=== PATIENT | female | born 1965 | race Caucasian/White ===

== ENCOUNTER → 2016-11-12 | Outpatient (CLI) | payer BC ==
[~2016-11-12] MED LIST: /DULO30CA; /LOR25TA PO; /ROPI1TA; ATEN50TA2 OR; ATEN50TA2 PO; AVONEX IM; CEFT2ADD; COLA100C2 OR; COLA50CA OR; COZA50TA18 OR; EYE VIT PO; FLEXERIL; HEPARIN FLUSH; HYDR25TA6 OR; HYDR25TA6 PO; IBUP600T; LIDO5DIS EX; LUTEIN PO; MAGN500T2 PO; METH2.5T OR; MULTIVITAMIN PO; NAPR250T OR; NEUR100C OR; NEUR300C OR; NEUR600T OR; NORT25CA2 OR; NORT50CA OR; OMEP20TA7 OR; PRED FORTE OS; SALINE FLUSH; SENN8.6T5 OR; SYNT50TA; TENO50TA; TIZA4TAB OR; VICODINES TAB OR; VITA500C OR; VITAMIN D50000 UNT OR; VOLT1GEL2 TD; ZOVI5OIN; multi vit PO; relpax PO; vit D3 PO
[2016-11-12 10:53] LABS: EOS # 0.1 K/mm3 (0.0-0.50); EOS % 2.4 % (0.0-3.0); LARGE UNSTAINED CELL # 0.1 K/mm3 (0.0-0.4); LYMPH # 1.4 K/mm3 (1.5-4.5); LYMPH % 27.9 % (24.0-44.0); MEAN CORPUSCULAR HEMOGLOBIN 28.9 pg (27.0-33.0); MEAN CORPUSCULAR HGB CONC 32.3 g/dl (32.0-36.5); MEAN CORPUSCULAR VOLUME 89.2 fl (80.0-96.0); MONO # 0.4 K/mm3 (0.0-0.8); MONO % 7.9 % (0.0-5.0); NEUTROPHILS # 2.8 K/mm3 (1.8-7.7); NEUTROPHILS % 58.7 % (36.0-66.0); PLATELET COUNT, AUTOMATED 184 k/mm3 (150-450); RED CELL DISTRIBUTION WIDTH 13.4 % (11.5-14.5); WHITE BLOOD COUNT 4.7 K/mm3 (4.0-10.0)
[2016-11-12 11:21] LABS: ALBUMIN 3.7 GM/DL (3.2-5.2); ALBUMIN/GLOBULIN RATIO 0.97 (1.00-1.93); BILIRUBIN,DIRECT 0.2 MG/DL (0.0-0.2); BILIRUBIN,TOTAL 0.5 MG/DL (0.2-1.0); FREE T4 1.12 NG/DL (0.76-1.46); TOTAL PROTEIN 7.5 GM/DL (6.4-8.2)
== END ==
LOC: M LAB 10:06
PROVIDERS: ATTEND Nurse Practitioner Adult Health
DX: D51.1 Vitamin B12 deficiency anemia due to selective vitamin B12 malabsorption with proteinuria (principal)

== ENCOUNTER → 2016-12-23 | Outpatient (CLI) | payer OTHER, BC ==
[2016-12-23 09:12] LABS: BLOOD UREA NITROGEN 15 MG/DL (7-18); CREATININE FOR GFR 0.91 MG/DL (0.55-1.02); GLOMERULAR FILTRATION RATE > 60.0 (>51)
== END ==
LOC: M LAB 08:03
PROVIDERS: ATTEND Nurse Practitioner Family
DX: Z01.818 Encounter for other preprocedural examination (principal); M50.320 Other cervical disc degeneration, mid-cervical region, unspecified level; M51.36 Other intervertebral disc degeneration, lumbar region; M51.26 Other intervertebral disc displacement, lumbar region; M54.16 Radiculopathy, lumbar region; M50.20 Other cervical disc displacement, unspecified cervical region; M46.1 Sacroiliitis, not elsewhere classified; M47.817 Spondylosis without myelopathy or radiculopathy, lumbosacral region; M47.812 Spondylosis without myelopathy or radiculopathy, cervical region; M79.7 Fibromyalgia; G35 Multiple sclerosis; I10 Essential (primary) hypertension

== ENCOUNTER 2017-02-18 06:42 | Day surgery (SDC) | payer BC, OTHER ==
[~2017-02-18] VITALS: Ht 160 cm; Wt 88.6 kg
[2017-02-18] MEDS ORDERED: MULT1TAB18 PO (07:13)
[2017-02-18] MEDS ORDERED: MIRA3350 PO ×2 (07:13→11:27)
[2017-02-18] MEDS ORDERED: LEVO75TA4 PO ×2 (07:13→11:27)
[2017-02-18] MEDS ORDERED: KLON0.5T PO (07:13)
[2017-02-18] MEDS ORDERED: AMPY10TA PO (07:13)
[2017-02-18] MEDS ORDERED: NORV5TAB PO (07:13)
[2017-02-18] MEDS ORDERED: estrace (07:13)
[2017-02-18] MEDS ORDERED: AMMO12CR4 EX (07:13)
[2017-02-18] MEDS ORDERED: FLUO20CA8 PO (07:13)
--- NOTE | 2017-02-18 10:10 | REP ---
CT CHEST WITHOUT IV CONTRAST: CT chest is performed without IV contrast. There is a question of hard candy aspiration. Careful evaluation of the trachea and bronchi demonstrate no definite foreign body. There is an area of confluent opacity in the left lower lobe representing atelectasis or infiltrate. There is very mild fibroatelectatic change in the right middle lobe. No significant adenopathy is seen in the chest. The heart is mildly enlarged. There is no pleural or pericardial effusion. The visualized upper abdominal structures appear unremarkable. IMPRESSION: No definite radiopaque foreign body identified. Left lower lobe atelectasis/infiltrate. Signed by Chetan Ahn MD 02/18/2017 03:19 P
[2017-02-18] MEDS ORDERED: [UNRECOGNIZED DRUG - CODE] SC (11:17)
[2017-02-18] MEDS ORDERED: VITMTA PO (11:27)
[2017-02-18] MEDS ORDERED: NORT50CA PO (11:27)
[2017-02-18] MEDS ORDERED: ATEN50TA2 PO (11:27)
[2017-02-18] MEDS ORDERED: GABA600T PO (11:27)
[2017-02-18] MEDS ORDERED: GABA-282 PO (11:27)
[2017-02-18] MEDS ORDERED: CLON0.5T PO (11:27)
[2017-02-18] MEDS ORDERED: SENN1TAB10 PO (11:27)
[2017-02-18] MEDS ORDERED: AMLO5TAB2 PO (11:27)
[2017-02-18] MEDS ORDERED: ZANA4TAB PO (11:27)
[2017-02-18] MEDS ORDERED: HYDR-3713 PO (11:27)
[2017-02-18] MEDS ORDERED: HYDR12CA PO (11:27)
[2017-02-18] MEDS ORDERED: NAPR500T3 PO (11:27)
[2017-02-18] MEDS ORDERED: COLA100C5 PO (11:27)
[2017-02-18] MEDS ORDERED: ESTR1CRE PV (11:27)
[2017-02-18] MEDS ORDERED: VOLT1GEL15 TD (11:27)
[2017-02-18] MEDS ORDERED: RELP40TA PO (11:27)
[2017-02-18] MEDS ORDERED: LOSA50TA20 PO (11:27)
[2017-02-18] MEDS ORDERED: FLUO40CA PO (11:27)
[2017-02-18 11:43] LABS: MEAN CORPUSCULAR HEMOGLOBIN 28.6 pg (27.0-33.0); MEAN CORPUSCULAR HGB CONC 33.2 g/dl (32.0-36.5); MEAN CORPUSCULAR VOLUME 86.1 fl (80.0-96.0); RED CELL DISTRIBUTION WIDTH 14.5 % (11.5-14.5); WHITE BLOOD COUNT 5.7 K/mm3 (4.0-10.0)
[2017-02-18 11:48] LABS: ALBUMIN/GLOBULIN RATIO 0.87 (1.00-1.93); ALKALINE PHOSPHATASE 160 U/L (45-117); ALT/SGPT 46 U/L (12-78); ANION GAP 9 MEQ/L (8-16); AST/SGOT 39 U/L (15-37); BILIRUBIN,TOTAL 0.5 MG/DL (0.2-1.0); BLOOD UREA NITROGEN 19 MG/DL (7-18); CALCIUM LEVEL 9.5 MG/DL (8.5-10.1); CARBON DIOXIDE LEVEL 27 MEQ/L (21-32); CHLORIDE LEVEL 103 MEQ/L (98-107); CREATININE FOR GFR 0.99 MG/DL (0.55-1.02); GLOMERULAR FILTRATION RATE > 60.0 (>51); GLUCOSE, FASTING 91 MG/DL (70-105); POTASSIUM SERUM 3.9 MEQ/L (3.5-5.1); SODIUM LEVEL 139 MEQ/L (136-145); TOTAL PROTEIN 8.6 GM/DL (6.4-8.2)
--- NOTE | 2017-02-18 11:50 | REP ---
CHEST, TWO VIEWS: Two views of the chest are performed. There is an area of left lower lobe atelectasis/infiltrate anteriorly best seen on the lateral view. Right lung is clear. Heart appears slightly enlarged. Mediastinal silhouette is unremarkable. There are mild degenerative changes of the spine. IMPRESSION: Left lower lobe atelectasis/infiltrate. Signed by Chetan Ahn MD 02/18/2017 03:19 P
--- NOTE | 2017-02-18 12:31 | HPE ---
DATE OF ADMISSION: 02/18/2017 REASON FOR ADMISSION: Possible foreign body aspiration. HISTORY OF PRESENT ILLNESS: Mikaela Syed is a very pleasant, 52-year-old lifetime nonsmoker who presented to the emergency room this morning after having what she believes to be an aspiration event. She states she often uses hard candy to treat her dry mouth symptoms. She had a half a piece of hard candy in her mouth that she believes she aspirated. She had coughing associated with this and now has a discomfort on the left side of her sternum. Initially, she thought the lozenge could dissolve and consumed water. She has had no solid food since this time. She states she definitely felt the hard candy move during inhalation. 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 She has been recently treated for Strep throat. She states on February 08 she was started on amoxicillin. Initially, she had a fever, but this has resolved. Currently, she has no significant increase in shortness breath. She has been having harsh coughing episodes with occasional biliary production and possible aspiration since the diagnosis of Strep throat and intermittent coughing since the potential for body aspiration. She states yesterday she was under a procedure for lumbar radiofrequency and had conscious sedation. She states she does not have any significant reactions from general anesthesia, but does have "a hard time coming out". She has had no significant changes in weight. Currently has no fevers. No history of coronary disease. No history of lung disease. PAST MEDICAL HISTORY: Significant for multiple sclerosis, hypertension, history of lacunar infarct, history of lumbar radiofrequency, MS with bilateral lower extremity paresthesias, hypothyroidism, depression, fatigue, migraine headaches, vaginal atrophy for which she takes esterase, chronic pain, plantar fasciitis, history of a cystocele, history of left rotator cuff injury, and right wrist tendonitis and carpal tunnel syndrome. Her primary care physician is Dr. Main. Past Medical History: 1. Hydrocodone/Acetaminophen 5/325 one po TID prn pain 2. Amlodipine 5mg po BID 3. Atenolol 75mg po BID 4. Clonazepam 0.5mg po TID 5. Colace 100mg po Qweek 6. Relpax 40mg po prn 7. Estradiol cream 8. Fluoxetine 40 mg po daily 9. Gabapentin 300mg po tid, A total of 900 QHS 10. Hydrochlorothiazide 12.5mg po daily 11. Synthroid 75mcg QD 12. Losartan 50mg po BID 13. MVI one tab po daily 14. Naproxen 500mg po BID 15. Nortriptyline 50mg po QHS 16. Polyethylene glycol 17 gram po prn 17. Rebif 44mcg SQ every 3 weeks 18. Senna 8.6mg 1-2 tabs prn constipation 19. Zanaflex 4mg po QID 20. Voltaren 1% gel one dose BID prn Allergies: Sulfa drugs FAMILY HISTORY: Father had a renal transplant from end-stage renal disease and also has a history of hypertension. Mother has a history of goiter. SOCIAL HISTORY: The patient is a lifetime nonsmoker. No illicit drug use. Has one wine cooler every 4 months. Has one parakeet, two dogs. 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 Lives with her who is also a renal transplant patient. REVIEW OF SYSTEMS: General: No significant weight swings. Remote history of fever at the beginning of her treatment for her Strep throat. No fever currently. No chills or night sweats. HEENT: No change in vision. She wears glasses. No earaches. She has chronic dry mouth. No difficulty swallowing usually. Neck: No stridor. No history of goiter. Endocrine: No polyuria or polydipsia. Hematology/Oncology: No history of bleeding diatheses, but she states she does tend to bleed easily. She has not been formally diagnosed with any blood clotting disorders. GI: No nausea, vomiting, diarrhea, constipation, or blood in stool. : No burning or pain with urination. No hematuria or dysuria. Cardiac: No history of coronary artery disease. No anginal symptoms. No orthopnea, paroxysmal nocturnal dyspnea (PND) or lower extremity edema. No calf pain or history of thromboembolic disease. Neurologic: No unilateral weakness. She does have bilateral paresthesias. No history of tremor or seizure activity. No head trauma. Psych: She does not feel depressed currently, she has a history of depression. No suicidal ideation. Immunology/Allergies: No significant immunodeficiencies. No frequent infections. PHYSICAL EXAMINATION: Temperature is 97.5, pulse is 72, respiratory rate is 18, blood pressure is 138/84 with oxygen saturation 96% on room air. General: Awake, alert and oriented. Affect and mood appropriate. Nutrition and hygiene good. Oral and nasal mucosa pink and moist without lesions. Oropharynx without erythema or exudate. Tongue is midline. There is some dryness of the tongue and an open lesion on the left side of the tongue. She has prominent tonsils without any obstruction of the airway. Mallampati 1. Posterior pharynx without erythema or exudate. Neck: Supple. No tracheal deviation or mass. No thyromegaly. Lymphs: No cervical, supraclavicular or axillary adenopathy. Cardiac: Regular. S1, S2, without audible murmur or gallop. No elevated jugular venous pulse (JVP). No peripheral edema. Pulmonary: Clear to auscultation without rales, rhonchi or wheezes. No accessory muscle use. No wheezing. No stridor. No dullness to percussion. Abdomen: Soft, nontender, nondistended. No hepatosplenomegaly. No masses or hernias. Normoactive bowel sounds. Extremities: No cyanosis, clubbing or edema. Skin is pale, dry, without rash, jaundice or bruising. Musculoskeletal: Tone is normal. There is no evidence of joint effusion or fracture. Neurologic: No unilateral weakness, tremor or seizure activity. LABORATORY EVALUATION: Pending. Chest CT was reviewed. I cannot disagree with the chest CT report. I believe there is an abnormality in the left lower lobe that could possibly be a foreign body; however, it does appear to be possibly confluent with the artery versus infiltrate. However, there is a potential foreign body in the medial basal segment of the left lower lobe. Otherwise, I do not find any significant abnormalities in the lung. I agree that there is maybe some mild fibrotic atelectatic change. No evidence of pneumothorax. No pleural effusion. No pericardial effusion. No significant adenopathy. IMPRESSION: 1. Foreign body aspiration with a piece of candy. Due to the patient's persistent symptoms, cough and potential for infection, will perform bronchoscopy to remove the foreign body and wash airway. The patient was consented. The risks of the procedure including cough, sore throat, bleeding, pneumothorax, and difficulty with anesthesia were reviewed with the patient in detail. She expresses understanding. I did educate her on bronchoscopy, that if there is anything abnormal during my exam that is unrelated to the foreign body aspiration, that I may decide to biopsy this area if there is a significant abnormality that is cause of concern. She expresses understanding and gives consent for this. My plan is to perform this on a same day procedure and if she tolerates the procedure well and recovers well from anesthesia to discharge her home later today. If she has any difficulty with breathing, will admit the patient to the hospital for observation. DIANA
[2017-02-18] MEDS ORDERED: ROCURONIUM BROMIDE 50 MG/5 ML VIAL/SYRINGE As Ordered ONE (12:32)
[2017-02-18] MEDS ORDERED: PROPOFOL 200 MG/20 ML VIAL As Ordered ONE (12:32)
[2017-02-18] MEDS ORDERED: LIDOCAINE 2% INJ 100 MG/5 ML SDV (FOR ANES.) As Ordered ONE (12:32)
[2017-02-18] MEDS ORDERED: fentaNYL 100 MCG/2 ML INJECTION (J3010) As Ordered ONE (12:32)
[2017-02-18] MEDS ORDERED: MIDAZOLAM INJ 2 MG/2 ML VIAL (J2250) As Ordered ONE (12:32)
[2017-02-18] MEDS ORDERED: ONDANSETRON 4MG/2ML VIAL (J2405) As Ordered ONE (12:32)
[2017-02-18] MEDS ORDERED: SUCCINYLCHOLINE 100 MG/5 ML SYRINGE (J0330) As Ordered ONE (12:32)
[2017-02-18] MEDS ORDERED: dexameTHASONE 4 MG/ML 1ML VIAL (J1100) As Ordered ONE (12:32)
--- NOTE | 2017-02-18 13:03 | RO ---
DATE OF PROCEDURE: 02/18/2017 PREOPERATIVE DIAGNOSIS: Possible foreign body aspiration, abnormal chest CT. POSTOPERATIVE DIAGNOSIS: Possible foreign body aspiration, abnormal chest CT. FINDINGS: Dissolved brown liquid in the left lower lobe. PROCEDURE: Bronchoscopy with lavage. PROCEDURALIST: Wicho Cruz DO WAFER POLISHING LEAD WORKER: None ANESTHESIA: General. DESCRIPTION OF PROCEDURE: After informed consent was reviewed with the patient, she was brought back to operating room number three. A time out was then performed with two patient identifiers, identifying correct site and correct procedure. General anesthesia was initiated. The case was then handed over to me. Cetacaine spray was used to anesthetize the airway and lubricate the endotracheal tube. The [id number] scope was then inserted in through the of the endotracheal tube just after a second time out was performed with two patient identifiers, identifying correct site and correct procedure. The bronchoscope was then advanced into the airways. Trachea was midline. Soledad was sharp. Right and left bronchus was normal except for some mild white plaquing of the right mainstem consistent with nestor. RB 1 through 10 was normal without endobronchial lesions. LB 1 through 5 was normal without endobronchial lesions. There was a trail of brown liquid down the left mainstem. In the left lower lobe, there was thick obstructing mucus to the left lower lobe. This was suctioned and lavaged. All airways were cleared. There was no foreign body. All airways of the lower lobe were then again lavaged and suctioned. Airways were cleared and the bronchoscope was removed. There were no observed complications. The patient was extubated and is in recovery. I have prescribed azithromycin as an outpatient due to the inflammation from the probable aspiration given the brown liquid in the left mainstem. This was called into her pharmacy in [facility]. DIANA
[2017-02-18 13:09] VITALS: BP 119/75
[2017-02-18] MEDS ORDERED: LR 1,000 ML IV SCH (13:15)
== END 2017-02-18 15:10 | disposition home or self-care (01) ==
LOC: M ED 06:42 → M SDC 11:18 → M MS5PR 13:30 → M SDC 15:10
PROVIDERS: ATTEND Internal Medicine Pulmonary Disease
DX: R91.8 Other nonspecific abnormal finding of lung field (principal); T17.828A Food in other parts of respiratory tract causing other injury, initial encounter; X58.XXXA Exposure to other specified factors, initial encounter; Y92.89 Other specified places as the place of occurrence of the external cause; G35 Multiple sclerosis; I10 Essential (primary) hypertension; Z86.73 Personal history of transient ischemic attack (TIA), and cerebral infarction without residual deficits; E03.9 Hypothyroidism, unspecified; F32.9 Major depressive disorder, single episode, unspecified; G43.909 Migraine, unspecified, not intractable, without status migrainosus; N95.2 Postmenopausal atrophic vaginitis; M48.00 Spinal stenosis, site unspecified; M54.9 Dorsalgia, unspecified; Z79.899 Other long term (current) drug therapy; Z88.2 Allergy status to sulfonamides
CPT/HCPCS: 31624; 71020; 71250; 80053; 85027; 99284; J0330; J1100; J2250; J2405; J3010

== ENCOUNTER → 2017-03-10 | Outpatient (CLI) | payer BC ==
[~2017-03-10] MED LIST changes: +AMLO5TAB2 PO; +AMMO12CR4 EX; +AMPY10TA PO; +CLON0.5T PO; +COLA100C5 PO; +ESTR1CRE PV; +FLUO20CA8 PO; +FLUO40CA PO; +GABA-282 PO; +GABA600T PO; +HYDR-3713 PO; +HYDR12CA PO; +KLON0.5T PO; +LEVO75TA4 PO; +LOSA50TA20 PO; +MIRA3350 PO; +MULT1TAB18 PO; +NAPR500T3 PO; +NORT50CA PO; +NORV5TAB PO; +RELP40TA PO; +SENN1TAB10 PO; +VITMTA PO; +VOLT1GEL15 TD; +ZANA4TAB PO; +[UNRECOGNIZED DRUG - CODE] SC; +estrace
--- NOTE | 2017-03-10 11:16 | REPMRS ---
Patient History The patient states she had a clinical breast exam in January 2017. Family history of endometrial cancer in maternal aunt, breast cancer in maternal aunt at age 65, breast cancer in paternal aunt at age 55, and endometrial cancer in maternal cousin at age 25. Took hormonal contraceptives for 11 years. Digital Mammo Screening Bilat: March 10, 2017 - Exam #: [id number] Bilateral CC and MLO view(s) were taken. Technologist: Beatris Herrera, Technologist Prior study comparison: February 29, 2016, bilateral digital mammo screening bilat performed at [facility]. February 18, 2015, digital bilateral screening mammo, performed at [facility]. FINDINGS: There are scattered fibroglandular densities. There has been no change in the appearance of the mammogram from the prior studies. There is a mild amount of residual fibroglandular tissue which is fairly symmetric. There is no interval development of dominant mass, architectural distortion, or clustered microcalcification suggestive of malignancy. ASSESSMENT: BI-RADS/ACR category 1 mammogram. Negative. Recommendation Routine screening mammogram in 1 year (for women over age 40). This mammogram was interpreted with the aid of an FDA-approved computer-aided dectection system. Electronically Signed By: Chetan Ahn MD 03/10/17 [id number]
== END ==
LOC: M RAD 08:17
PROVIDERS: ATTEND Obstetrics & Gynecology
DX: Z12.31 Encounter for screening mammogram for malignant neoplasm of breast (principal)

== ENCOUNTER 2017-04-14 10:02 | Emergency (ER) | payer BC ==
[~2017-04-14] VITALS: Ht 160 cm; Wt 86.4 kg
[2017-04-14 10:03] VITALS: BP 132/76
[2017-06-08] MEDS ORDERED: KEFL500C17 PO (15:08)
== END 2017-04-14 10:48 | disposition home or self-care (01) ==
LOC: M ED 10:02
DX: S00.411A Abrasion of right ear, initial encounter (principal); X58.XXXA Exposure to other specified factors, initial encounter; Y92.89 Other specified places as the place of occurrence of the external cause; Y93.89 Activity, other specified; Y99.8 Other external cause status; I10 Essential (primary) hypertension; G35 Multiple sclerosis; E03.9 Hypothyroidism, unspecified; M79.7 Fibromyalgia; Z79.899 Other long term (current) drug therapy; Z88.2 Allergy status to sulfonamides; Z86.73 Personal history of transient ischemic attack (TIA), and cerebral infarction without residual deficits

== ENCOUNTER 2017-06-13 11:38 | Emergency (ER) | payer BC ==
[~2017-06-13] VITALS: Ht 160 cm; Wt 84.5 kg
[~2017-06-13 11:38] MED LIST changes: +KEFL500C17 PO
[2017-06-13] MEDS ORDERED: LIDOCAINE 1% MDV 20ML VIAL IM ONE (12:45)
[2017-06-13] MEDS ORDERED: ADACEL/BOOSTRIX VACCINE (DIPHTH/PERTUSS/ACELL/TETANUS)0.5ML SYR (90715) IM ONE (12:45)
[2017-06-13] MEDS ORDERED: CEPHALEXIN 500 MG CAP PO ONE (12:45)
[2017-06-13] MEDS ORDERED: KEFL500C17 PO (13:13)
[2017-06-13 13:20] VITALS: BP 121/77
== END 2017-06-13 13:23 | disposition home or self-care (01) ==
LOC: M ED 11:38
DX: S51.812A Laceration without foreign body of left forearm, initial encounter (principal); W26.0XXA Contact with knife, initial encounter; Y92.009 Unspecified place in unspecified non-institutional (private) residence as the place of occurrence of the external cause; Y93.G1 Activity, food preparation and clean up; Y99.8 Other external cause status; G35 Multiple sclerosis; M79.7 Fibromyalgia; Z86.73 Personal history of transient ischemic attack (TIA), and cerebral infarction without residual deficits

== ENCOUNTER → 2018-04-05 | Outpatient (CLI) | payer BC, MEDICARE | LOC: M WHC 09:11 | DX: Z12.31 Encounter for screening mammogram for malignant neoplasm of breast (principal); Z13.820 Encounter for screening for osteoporosis; M89.9 Disorder of bone, unspecified | CPT/HCPCS: 77067 ==

== ENCOUNTER → 2018-05-02 | Outpatient (CLI) | payer BC, MEDICARE ==
[2018-05-02 09:52] LABS: ALBUMIN 3.8 GM/DL (3.2-5.2); ALBUMIN/GLOBULIN RATIO 1.12 (1.00-1.93); ALKALINE PHOSPHATASE 140 U/L (45-117); ALT/SGPT 43 U/L (12-78); ANION GAP 5 MEQ/L (8-16); AST/SGOT 35 U/L (7-37); BILIRUBIN,TOTAL 0.4 MG/DL (0.2-1.0); BLOOD UREA NITROGEN 15 MG/DL (7-18); CALCIUM LEVEL 9.2 MG/DL (8.5-10.1); CARBON DIOXIDE LEVEL 30 MEQ/L (21-32); CHLORIDE LEVEL 110 MEQ/L (98-107); CREATININE FOR GFR 0.84 MG/DL (0.55-1.30); GLOMERULAR FILTRATION RATE > 60.0 (>51); GLUCOSE, FASTING 79 MG/DL (70-100); POTASSIUM SERUM 4.1 MEQ/L (3.5-5.1); SODIUM LEVEL 145 MEQ/L (136-145); TOTAL PROTEIN 7.2 GM/DL (6.4-8.2)
== END ==
LOC: M LAB 07:53
DX: G35 Multiple sclerosis (principal)
CPT/HCPCS: 80053

== ENCOUNTER → 2018-12-19 | Outpatient (REF) | payer BC, MEDICARE ==
[~2018-12-19] MED LIST changes: -/DULO30CA; -/ROPI1TA; -AMLO5TAB2 PO; +AMLO5TAB6 PO; -AMMO12CR4 EX; +AMMO12CR7 EX; -CLON0.5T PO; +CLON0.5T8 PO; +CYMB1CAP5; -GABA-282 PO; +GABA-843 PO; -GABA600T PO; +GABA600T4 PO; -LOSA50TA20 PO; +LOSA50TA88 PO; +NAPR-885 PO; -NAPR500T3 PO; +REQU1TAB16
[2018-12-19 12:33] LABS: BASO % 0.8 % (0.0-1.0); EOS # 0.1 10^3/uL (0.0-0.50); EOS % 2.5 % (0.0-3.0); HEMATOCRIT 41.8 % (36.0-47.0); HEMOGLOBIN 13.8 g/dl (12.0-15.5); LYMPH # 1.5 10^3/uL (1.5-4.5); LYMPH % 31.8 % (24.0-44.0); MEAN CORPUSCULAR HEMOGLOBIN 29.9 pg (27.0-33.0); MEAN CORPUSCULAR VOLUME 90.7 fl (80.0-96.0); MONO # 0.4 10^3/uL (0.0-0.8); MONO % 8.7 % (0.0-5.0); NEUTROPHILS # 2.6 10^3/uL (1.8-7.7); NEUTROPHILS % 55.8 % (36.0-66.0); PLATELET COUNT, AUTOMATED 179 10^3/uL (150-450); RED BLOOD COUNT 4.61 10^6/uL (4.00-5.40); WHITE BLOOD COUNT 4.7 10^3/uL (4.0-10.0)
[2018-12-19 12:46] LABS: INR 0.92; PROTHROMBIN TIME 12.5 SECONDS (12.1-14.4)
[2018-12-19 12:47] LABS: PARTIAL THROMBOPLASTIN TIME 34.5 SECONDS (25.4-37.6)
[2018-12-19 13:04] LABS: ERYTHROCYTE SEDIMENTATION RATE 17 mm/hr (0-30)
[2018-12-19 13:26] LABS: ALT/SGPT 38 U/L (12-78); BILIRUBIN,TOTAL 0.5 MG/DL (0.2-1.0); BLOOD UREA NITROGEN 17 MG/DL (7-18); C REACTIVE PROTEIN QUANTITATIV 0.43 MG/DL (0.00-0.30); CALCIUM LEVEL 8.9 MG/DL (8.5-10.1); CARBON DIOXIDE LEVEL 27 MEQ/L (21-32); CHLORIDE LEVEL 108 MEQ/L (98-107); CHOLESTEROL LEVEL 239 MG/DL (<200); CHOLESTEROL RISK RATIO 3.793 (<5); CPK CREATINE PHOSPHOKINASE 76 U/L (26-192); CREATININE FOR GFR 0.84 MG/DL (0.55-1.30); FREE T4 1.05 NG/DL (0.76-1.46); GLOMERULAR FILTRATION RATE > 60.0 (>51); GLUCOSE, FASTING 88 MG/DL (70-100); HDL CHOLESTEROL 63 MG/DL (>40); LDL CHOLESTEROL 159 MG/DL (<100); NON-HDL-C 176 MG/DL; SODIUM LEVEL 141 MEQ/L (136-145); TOTAL 25(OH) VITAMIN D 23.5 NG/ML (30.0-100.0); TOTAL PROTEIN 7.1 GM/DL (6.4-8.2); TRIGLYCERIDES LEVEL 87 MG/DL (<150)
[2018-12-19 18:34] LABS: APPEARANCE, URINE CLEAR (CLEAR); BACTERIA, URINE AUTO NEGATIVE (NEGATIVE); BILIRUBIN, URINE AUTO NEGATIVE (NEGATIVE); BLOOD, URINE BLOOD NEGATIVE (NEGATIVE); COLOR, URINE YELLOW (YELLOW); GLUCOSE, URINE (UA) AUTO NEGATIVE (NEGATIVE); KETONE, URINE AUTO NEGATIVE (NEGATIVE); LEUKOCYTE ESTERASE, URINE AUTO NEGATIVE (NEGATIVE); MUCUS, URINE SMALL (NEGATIVE); NITRITE, URINE AUTO NEGATIVE (NEGATIVE); PROTEIN, URINE AUTO NEGATIVE (NEGATIVE); RBC, URINE AUTO 0 /HPF (0-3); SPECIFIC GRAVITY URINE AUTO 1.012 (1.002-1.035); SQUAMOUS EPITHELIAL CELL UR AU 1 /HPF (0-6); UROBILINOGEN, URINE AUTO 0.2 mg/dL (0.0-2.0); WBC, URINE AUTO 0 /HPF (0-3)
[2018-12-21 00:06] LABS: ANTI DOUBLE STRAND-DNA AB 1 IU/mL (0-9); ANTINUCLEAR ANTIBODIES DIRECT Positive (Negative); Lyme Disease IgG/IgM Antibodie <0.91 ISR (0.00-0.90); Lyme Disease IgM Ab Quantitati <0.80 index (0.00-0.79); RNP ANTIBODIES 5.6 AI (0.0-0.9); SJOGREN'S ANTI SS-A 0.5 AI (0.0-0.9); SJOGREN'S ANTI SS-B <0.2 AI (0.0-0.9); SMITH ANTIBODIES <0.2 AI (0.0-0.9)
[2018-12-21 08:06] LABS: F8 ACTIVITY FOR F8 PANEL 85 % (57-163); F8 ACTIVITY vWB FOR F8 PANEL 147 % (50-200); F8 ANTIGEN FOR F8 PANEL 187 % (50-200)
[2018-12-25 10:33] LABS: DRVV SCREEN 55.4 SEC
[2018-12-25 10:34] LABS: PTT LUPUS TYPE ANTICOAG SCREEN 1.3 (0-1.2)
[2018-12-25 10:41] LABS: DRVV CONFIRM 41.1 SEC; LUPUS CONFIRM RATIO 1.1; NORMALIZED RATIO 1.18 (0.00-1.20)
== END ==
LOC: M LABDRAW1 12:06
PROVIDERS: ATTEND Internal Medicine
DX: E03.9 Hypothyroidism, unspecified (principal); G35 Multiple sclerosis; I99.8 Other disorder of circulatory system

== ENCOUNTER → 2019-03-04 | Outpatient (CLI) | payer BC, MEDICAID ==
[~2019-03-04] MED LIST changes: +CLON0.5T2 PO; -CLON0.5T8 PO; +FLUO20CA20 PO; -FLUO20CA8 PO
[2019-03-04 13:21] LABS: HEMATOCRIT 41.7 % (36.0-47.0); HEMOGLOBIN 13.3 g/dl (12.0-15.5); MEAN CORPUSCULAR HEMOGLOBIN 28.9 pg (27.0-33.0); MEAN CORPUSCULAR HGB CONC 31.9 g/dl (32.0-36.5); MEAN CORPUSCULAR VOLUME 90.7 fl (80.0-96.0); PLATELET COUNT, AUTOMATED 180 10^3/uL (150-450); WHITE BLOOD COUNT 5.6 10^3/uL (4.0-10.0)
[2019-03-04 13:29] LABS: ALT/SGPT 36 U/L (12-78); BILIRUBIN,DIRECT 0.1 MG/DL (0.0-0.2); BILIRUBIN,TOTAL 0.5 MG/DL (0.2-1.0); BLOOD UREA NITROGEN 19 MG/DL (7-18); CALCIUM LEVEL 9.3 MG/DL (8.5-10.1); CARBON DIOXIDE LEVEL 29 MEQ/L (21-32); CHLORIDE LEVEL 109 MEQ/L (98-107); CREATININE FOR GFR 0.81 MG/DL (0.55-1.30); GLOMERULAR FILTRATION RATE > 60.0 (>51); GLUCOSE, FASTING 77 MG/DL (70-100); PHOSPHORUS LEVEL 3.1 MG/DL (2.5-4.9); POTASSIUM SERUM 4.3 MEQ/L (3.5-5.1); SODIUM LEVEL 142 MEQ/L (136-145); TOTAL PROTEIN 7.5 GM/DL (6.4-8.2)
== END ==
LOC: M SMT 09:30
PROVIDERS: ATTEND Podiatrist Foot & Ankle Surgery
DX: B35.1 Tinea unguium (principal); Z79.899 Other long term (current) drug therapy

== ENCOUNTER → 2020-01-02 | Outpatient (CLI) | payer BC, MEDICAID ==
[~2020-01-02] MED LIST changes: +COZA50TA PO
[2020-01-02 09:58] LABS: BASO # 0.1 10^3/uL (0.0-0.2); BASO % 1.1 % (0.0-1.0); EOS # 0.2 10^3/uL (0.0-0.5); EOS % 3.2 % (0.0-3.0); HEMATOCRIT 39.8 % (36.0-47.0); LYMPH # 2.2 10^3/uL (1.5-5.0); LYMPH % 35.8 % (24.0-44.0); MEAN CORPUSCULAR HEMOGLOBIN 29.7 pg (27.0-33.0); MEAN CORPUSCULAR HGB CONC 32.7 g/dl (32.0-36.5); MEAN CORPUSCULAR VOLUME 90.9 fl (80.0-96.0); MONO # 0.7 10^3/uL (0.0-0.8); NEUTROPHILS % 48.6 % (36.0-66.0); PLATELET COUNT, AUTOMATED 170 10^3/uL (150-450); RED BLOOD COUNT 4.38 10^6/uL (4.00-5.40); WHITE BLOOD COUNT 6.2 10^3/uL (4.0-10.0)
[2020-01-02 10:03] LABS: APPEARANCE, URINE HAZY (CLEAR); BACTERIA, URINE AUTO NEGATIVE (NEGATIVE); BILIRUBIN, URINE AUTO NEGATIVE (NEGATIVE); BLOOD, URINE BLOOD NEGATIVE (NEGATIVE); CALCIUM OXALATE CRYSTALS SMALL; COLOR, URINE YELLOW (YELLOW); GLUCOSE, URINE (UA) AUTO NEGATIVE (NEGATIVE); KETONE, URINE AUTO NEGATIVE (NEGATIVE); LEUKOCYTE ESTERASE, URINE AUTO NEGATIVE (NEGATIVE); NITRITE, URINE AUTO NEGATIVE (NEGATIVE); PROTEIN, URINE AUTO NEGATIVE (NEGATIVE); RBC, URINE AUTO 3 /HPF (0-3); SPECIFIC GRAVITY URINE AUTO 1.019 (1.002-1.035); SQUAMOUS EPITHELIAL CELL UR AU 1 /HPF (0-6); UROBILINOGEN, URINE AUTO 0.2 mg/dL (0.0-2.0); WBC, URINE AUTO 2 /HPF (0-3)
[2020-01-02 10:21] LABS: ALBUMIN 3.6 GM/DL (3.2-5.2); ALT/SGPT 70 U/L (12-78); BILIRUBIN,DIRECT < 0.1 MG/DL (0.0-0.2); BILIRUBIN,TOTAL 0.4 MG/DL (0.2-1.0); BLOOD UREA NITROGEN 23 MG/DL (7-18); CALCIUM LEVEL 9.6 MG/DL (8.5-10.1); CARBON DIOXIDE LEVEL 29 MEQ/L (21-32); CHLORIDE LEVEL 107 MEQ/L (98-107); CREATININE FOR GFR 0.95 MG/DL (0.55-1.30); GLOMERULAR FILTRATION RATE > 60.0 (>51); GLUCOSE, FASTING 77 MG/DL (70-100); POTASSIUM SERUM 4.2 MEQ/L (3.5-5.1); SODIUM LEVEL 143 MEQ/L (136-145); TOTAL PROTEIN 7.3 GM/DL (6.4-8.2)
[2020-01-02 10:29] LABS: TOTAL 25(OH) VITAMIN D 34.2 NG/ML (30.0-100.0)
== END ==
LOC: M LAB 08:22
PROVIDERS: ATTEND Specialist
DX: Z51.81 Encounter for therapeutic drug level monitoring (principal); Z79.891 Long term (current) use of opiate analgesic; E87.8 Other disorders of electrolyte and fluid balance, not elsewhere classified; N23 Unspecified renal colic; E55.9 Vitamin D deficiency, unspecified; D64.9 Anemia, unspecified

== ENCOUNTER 2020-01-06 14:24 | Outpatient (CLI) | payer MEDICARE, MEDICAID ==
[~2020-01-06] VITALS: Ht 160 cm; Wt 89.5 kg
[~2020-01-06 14:24] MED LIST changes: -COZA50TA PO
[2020-01-06 14:25] VITALS: BP 132/63
[2020-01-06] MEDS ORDERED: methylPREDNISolone 1,000 MG, VIAL MATE ADAPTER 1 EACH in D5W 250 ML IV ONE (14:45)
[2020-01-06 16:00] VITALS: BP 142/70
[2020-01-06] MEDS ORDERED: COZA50TA PO (17:14)
[2020-01-06] MEDS ORDERED: NORV5TAB PO (17:15)
== END 2020-01-06 16:00 | disposition home or self-care (01) ==
LOC: M INFU 14:24
PROVIDERS: ATTEND Specialist
DX: G35 Multiple sclerosis (principal); Z88.2 Allergy status to sulfonamides
CPT/HCPCS: 96365; J2930

== ENCOUNTER 2020-01-07 14:00 | Outpatient (CLI) | payer MEDICARE, MEDICAID ==
[~2020-01-07] VITALS: Ht 160 cm; Wt 89.5 kg
[~2020-01-07 14:00] MED LIST changes: +COZA50TA PO
[2020-01-07 14:05] VITALS: BP 137/60
[2020-01-07] MEDS ORDERED: methylPREDNISolone 1,000 MG, VIAL MATE ADAPTER 1 EACH in D5W 250 ML IV ONE (14:15)
[2020-01-07 15:30] VITALS: BP 145/83
== END 2020-01-07 15:30 | disposition home or self-care (01) ==
LOC: M INFU 14:00
PROVIDERS: ATTEND Specialist
DX: G35 Multiple sclerosis (principal)
CPT/HCPCS: 96365; J2930

== ENCOUNTER 2020-01-08 14:36 | Outpatient (CLI) | payer MEDICARE, MEDICAID ==
[~2020-01-08] VITALS: Ht 160 cm; Wt 89.5 kg
[2020-01-08 14:45] VITALS: BP 149/74
[2020-01-08] MEDS ORDERED: methylPREDNISolone 1,000 MG, VIAL MATE ADAPTER 1 EACH in D5W 250 ML IV ONE (14:45)
[2020-01-08 16:30] VITALS: BP 143/83
== END 2020-01-08 16:30 | disposition home or self-care (01) ==
LOC: M INFU 14:36
PROVIDERS: ATTEND Specialist
DX: G35 Multiple sclerosis (principal); Z88.2 Allergy status to sulfonamides
CPT/HCPCS: 96365; J2930

== ENCOUNTER 2020-01-09 14:32 | Outpatient (CLI) | payer MEDICARE, MEDICAID ==
[~2020-01-09] VITALS: Ht 160 cm; Wt 89.5 kg
[~2020-01-09 14:32] MED LIST changes: +methylPREDNISolone 1,000 MG, VIAL MATE ADAPTER 1 EACH in D5W 250 ML IV ONE
[2020-01-09 14:50] VITALS: BP 142/76
[2020-01-09 16:00] VITALS: BP 156/70
== END 2020-01-09 16:00 | disposition home or self-care (01) ==
LOC: M INFU 14:32
PROVIDERS: ATTEND Specialist
DX: G35 Multiple sclerosis (principal); Z88.2 Allergy status to sulfonamides
CPT/HCPCS: 96365; J2930

== ENCOUNTER 2020-01-10 14:25 | Outpatient (CLI) | payer MEDICARE, MEDICAID ==
[~2020-01-10] VITALS: Ht 160 cm; Wt 89.5 kg
[~2020-01-10 14:25] MED LIST changes: -methylPREDNISolone 1,000 MG, VIAL MATE ADAPTER 1 EACH in D5W 250 ML IV ONE
[2020-01-10 14:30] VITALS: BP 173/75
[2020-01-10] MEDS ORDERED: methylPREDNISolone 1,000 MG, VIAL MATE ADAPTER 1 EACH in D5W 250 ML IV ONE (15:00)
[2020-01-10 15:45] VITALS: BP 164/88
== END 2020-01-10 16:00 | disposition home or self-care (01) ==
LOC: M INFU 14:25
PROVIDERS: ATTEND Specialist
DX: G35 Multiple sclerosis (principal); Z88.2 Allergy status to sulfonamides
CPT/HCPCS: 96365; J2930

== ENCOUNTER 2020-04-01 09:46 | Outpatient (CLI) | payer MEDICARE, MEDICAID ==
[~2020-04-01] VITALS: Ht 160 cm; Wt 89.5 kg
[~2020-04-01 09:46] MED LIST changes: +AMLO1TAB24 PO; -AMLO5TAB6 PO; +NATALIZUMAB OVER 1 HOUR IV ONE
[2020-04-01 09:57] VITALS: BP 111/82
[2020-04-01] MEDS ORDERED: NATALIZUMAB OVER 1 HOUR IV ONE ×2 (10:00)
[2020-04-01 10:33] VITALS: BP 111/82
[2020-04-01 12:46] VITALS: BP 116/55
== END 2020-04-01 12:53 | disposition home or self-care (01) ==
LOC: M INFU 09:46
PROVIDERS: ATTEND Specialist
DX: G35 Multiple sclerosis (principal)

== ENCOUNTER → 2020-04-15 | Outpatient (CLI) | payer MEDICARE, MEDICAID ==
[~2020-04-15] MED LIST changes: -NATALIZUMAB OVER 1 HOUR IV ONE
[2020-04-15 09:33] LABS: BASO % 0.9 % (0.0-1.0); EOS % 4.7 % (0.0-3.0); HEMATOCRIT 39.4 % (36.0-47.0); HEMOGLOBIN 13.1 g/dl (12.0-15.5); LYMPH # 2.8 10^3/uL (1.5-5.0); LYMPH % 39.3 % (24.0-44.0); MEAN CORPUSCULAR HEMOGLOBIN 29.7 pg (27.0-33.0); MEAN CORPUSCULAR HGB CONC 33.2 g/dl (32.0-36.5); MEAN CORPUSCULAR VOLUME 89.3 fl (80.0-96.0); MONO % 9.1 % (0.0-5.0); NEUTROPHILS # 3.2 10^3/uL (1.5-8.5); NEUTROPHILS % 45.3 % (36.0-66.0); PLATELET COUNT, AUTOMATED 166 10^3/uL (150-450); RED BLOOD COUNT 4.41 10^6/uL (4.00-5.40); WHITE BLOOD COUNT 7.1 10^3/uL (4.0-10.0)
[2020-04-15 09:34] LABS: BASO # 0.1 10^3/uL (0.0-0.2); EOS # 0.3 10^3/uL (0.0-0.5); MONO # 0.6 10^3/uL (0.0-0.8)
[2020-04-15 09:37] LABS: APPEARANCE, URINE CLEAR (CLEAR); BACTERIA, URINE AUTO NEGATIVE (NEGATIVE); BILIRUBIN, URINE AUTO NEGATIVE (NEGATIVE); BLOOD, URINE BLOOD NEGATIVE (NEGATIVE); COLOR, URINE YELLOW (YELLOW); GLUCOSE, URINE (UA) AUTO NEGATIVE (NEGATIVE); KETONE, URINE AUTO NEGATIVE (NEGATIVE); LEUKOCYTE ESTERASE, URINE AUTO NEGATIVE (NEGATIVE); MUCUS, URINE SMALL (NEGATIVE); NITRITE, URINE AUTO NEGATIVE (NEGATIVE); PROTEIN, URINE AUTO NEGATIVE (NEGATIVE); RBC, URINE AUTO 1 /HPF (0-3); SPECIFIC GRAVITY URINE AUTO 1.014 (1.002-1.035); SQUAMOUS EPITHELIAL CELL UR AU 3 /HPF (0-6); UROBILINOGEN, URINE AUTO 0.2 mg/dL (0.0-2.0); WBC, URINE AUTO 1 /HPF (0-3)
[2020-04-15 10:05] LABS: ALBUMIN 3.8 GM/DL (3.2-5.2); ALT/SGPT 38 U/L (12-78); BILIRUBIN,TOTAL 0.6 MG/DL (0.2-1.0); BLOOD UREA NITROGEN 17 MG/DL (7-18); CALCIUM LEVEL 9.1 MG/DL (8.5-10.1); CARBON DIOXIDE LEVEL 29 MEQ/L (21-32); CHLORIDE LEVEL 108 MEQ/L (98-107); CHOLESTEROL LEVEL 213 MG/DL (<200); CHOLESTEROL RISK RATIO 3.944 (<5); CREATININE FOR GFR 0.89 MG/DL (0.55-1.30); FREE T4 1.04 NG/DL (0.76-1.46); GLOMERULAR FILTRATION RATE > 60.0 (>51); GLUCOSE, FASTING 90 MG/DL (70-100); HDL CHOLESTEROL 54 MG/DL (>40); LDL CHOLESTEROL 142 MG/DL (<100); NON-HDL-C 159 MG/DL; POTASSIUM SERUM 4.2 MEQ/L (3.5-5.1); SODIUM LEVEL 142 MEQ/L (136-145); TOTAL PROTEIN 6.9 GM/DL (6.4-8.2); TRIGLYCERIDES LEVEL 85 MG/DL (<150)
== END ==
LOC: M LAB 08:46
PROVIDERS: ATTEND Internal Medicine
DX: G35 Multiple sclerosis (principal); N39.0 Urinary tract infection, site not specified; E03.9 Hypothyroidism, unspecified

== ENCOUNTER 2020-04-30 10:08 | Outpatient (CLI) | payer MEDICARE, MEDICAID ==
[~2020-04-30] VITALS: Ht 152.4 cm; Wt 89.5 kg
[2020-04-30 10:20] VITALS: BP 126/72
[2020-04-30] MEDS ORDERED: NATALIZUMAB OVER 1 HOUR IV ONE ×2 (10:30)
[2020-04-30 10:50] VITALS: BP 126/72
[2020-04-30 11:50] VITALS: BP 129/71
[2020-04-30 12:40] VITALS: BP 132/76
== END 2020-04-30 12:40 | disposition home or self-care (01) ==
LOC: M INFU 10:08
PROVIDERS: ATTEND Specialist
DX: G35 Multiple sclerosis (principal)

== ENCOUNTER 2020-06-01 11:54 | Outpatient (CLI) | payer MEDICARE, MEDICAID ==
[~2020-06-01] VITALS: Ht 160 cm; Wt 88.6 kg
[2020-06-01 12:00] VITALS: BP 118/64
[2020-06-01] MEDS ORDERED: NATALIZUMAB OVER 1 HOUR IV ONE ×2 (12:00)
[2020-06-01 13:25] VITALS: BP_SYST 109; BP_SYST 118; BP_DIAS 63; BP_DIAS 64
[2020-06-01 14:00] VITALS: BP 100/59
[2020-06-01 14:25] VITALS: BP 100/59
== END 2020-06-01 14:25 | disposition home or self-care (01) ==
LOC: M INFU 11:54
PROVIDERS: ATTEND Specialist
DX: G35 Multiple sclerosis (principal)

== ENCOUNTER 2020-06-30 08:04 | Outpatient (CLI) | payer MEDICARE, MEDICAID ==
[~2020-06-30] VITALS: Ht 160 cm; Wt 88.6 kg
[~2020-06-30 08:04] MED LIST changes: +NATALIZUMAB OVER 1 HOUR IV ONE
[2020-06-30 08:05] VITALS: BP 142/73
[2020-06-30 09:30] VITALS: BP 111/57
[2020-06-30 09:48] VITALS: BP 109/66
== END 2020-06-30 09:50 | disposition home or self-care (01) ==
LOC: M INFU 08:04
PROVIDERS: ATTEND Specialist
DX: G35 Multiple sclerosis (principal); Z88.2 Allergy status to sulfonamides

== ENCOUNTER 2020-08-03 07:52 | Outpatient (CLI) | payer MEDICARE, MEDICAID ==
[~2020-08-03] VITALS: Ht 160 cm; Wt 88.6 kg
[~2020-08-03 07:52] MED LIST changes: -NATALIZUMAB OVER 1 HOUR IV ONE
[2020-08-03] MEDS ORDERED: NATALIZUMAB OVER 1 HOUR IV ONE ×2 (08:00)
[2020-08-03 08:12] VITALS: BP 127/73
[2020-08-03 10:15] VITALS: BP 108/73
== END 2020-08-03 10:15 | disposition home or self-care (01) ==
LOC: M INFU 07:52
PROVIDERS: ATTEND Specialist
DX: G35 Multiple sclerosis (principal); Z88.2 Allergy status to sulfonamides

== ENCOUNTER 2020-08-31 07:51 | Outpatient (CLI) | payer MEDICARE, MEDICAID ==
[~2020-08-31] VITALS: Ht 160 cm; Wt 89.5 kg
[~2020-08-31 07:51] MED LIST changes: +GABA-282 PO; -GABA-843 PO
[2020-08-31 08:00] VITALS: BP 128/61
[2020-08-31] MEDS ORDERED: NATALIZUMAB OVER 1 HOUR IV ONE ×4 (08:30)
[2020-08-31 09:45] VITALS: BP 118/69
== END 2020-08-31 13:25 | disposition home or self-care (01) ==
LOC: M INFU 07:51
PROVIDERS: ATTEND Specialist
DX: G35 Multiple sclerosis (principal); Z88.2 Allergy status to sulfonamides
CPT/HCPCS: 96365; J2323

== ENCOUNTER 2020-09-29 08:41 | Outpatient (CLI) | payer MEDICARE, MEDICAID ==
[~2020-09-29] VITALS: Ht 160 cm; Wt 89.5 kg
[~2020-09-29 08:41] MED LIST changes: +NATALIZUMAB OVER 1 HOUR IV ONE
[2020-09-29 08:50] VITALS: BP 125/69
[2020-09-29 08:54] VITALS: BP 125/69
[2020-09-29 10:00] VITALS: BP 106/61
== END 2020-09-29 10:15 | disposition home or self-care (01) ==
LOC: M INFU 08:41
PROVIDERS: ATTEND Specialist
DX: G35 Multiple sclerosis (principal); Z88.2 Allergy status to sulfonamides
CPT/HCPCS: 96365; J2323

== ENCOUNTER 2020-10-29 09:28 | Outpatient (CLI) | payer MEDICARE, MEDICAID ==
[~2020-10-29] VITALS: Ht 160 cm; Wt 89.5 kg
[~2020-10-29 09:28] MED LIST changes: -NATALIZUMAB OVER 1 HOUR IV ONE
[2020-10-29] MEDS ORDERED: NATALIZUMAB OVER 1 HOUR IV ONE ×2 (09:30)
[2020-10-29 09:40] VITALS: BP 116/68
[2020-10-29 11:45] VITALS: BP 118/75
== END 2020-10-29 11:45 | disposition home or self-care (01) ==
LOC: M INFU 09:28
PROVIDERS: ATTEND Specialist
DX: G35 Multiple sclerosis (principal); Z88.2 Allergy status to sulfonamides
CPT/HCPCS: 96365; J2323

== ENCOUNTER 2020-12-02 09:13 | Outpatient (CLI) | payer MEDICARE, MEDICAID ==
[~2020-12-02] VITALS: Ht 160 cm; Wt 92.7 kg
[~2020-12-02 09:13] MED LIST changes: +NATALIZUMAB OVER 1 HOUR IV ONE
[2020-12-02 09:15] VITALS: BP 98/61
[2020-12-02 10:55] VITALS: BP 108/64
== END 2020-12-02 10:55 | disposition home or self-care (01) ==
LOC: M INFU 09:13
PROVIDERS: ATTEND Specialist
DX: G35 Multiple sclerosis (principal); Z88.2 Allergy status to sulfonamides
CPT/HCPCS: 96365; J2323

== ENCOUNTER 2020-12-31 11:27 | Outpatient (CLI) | payer MEDICARE, MEDICAID ==
[~2020-12-31] VITALS: Ht 160 cm; Wt 92.7 kg
[~2020-12-31 11:27] MED LIST changes: -NATALIZUMAB OVER 1 HOUR IV ONE
[2020-12-31] MEDS ORDERED: NATALIZUMAB OVER 1 HOUR IV ONE ×2 (11:30)
[2020-12-31 11:45] VITALS: BP 131/73
[2020-12-31 13:15] VITALS: BP 128/78
[2020-12-31] MEDS ORDERED: TYSA1INJ IV (13:52)
== END 2020-12-31 13:15 | disposition home or self-care (01) ==
LOC: M INFU 11:27
PROVIDERS: ATTEND Specialist
DX: G35 Multiple sclerosis (principal)
CPT/HCPCS: 96365; J2323

== ENCOUNTER 2021-01-28 11:31 | Outpatient (CLI) | payer MEDICARE, MEDICAID ==
[~2021-01-28] VITALS: Ht 160 cm; Wt 92.7 kg
[~2021-01-28 11:31] MED LIST changes: +NATALIZUMAB OVER 1 HOUR IV ONE; +TYSA1INJ IV
[2021-01-28 11:35] VITALS: BP 113/56
[2021-01-28 13:25] VITALS: BP 111/61
== END 2021-01-28 13:25 | disposition home or self-care (01) ==
LOC: M INFU 11:31
PROVIDERS: ATTEND Specialist
DX: G35 Multiple sclerosis (principal); Z88.2 Allergy status to sulfonamides
CPT/HCPCS: 96365; J2323

== ENCOUNTER → 2021-02-19 | Outpatient (CLI) | payer MEDICARE, MEDICAID ==
[~2021-02-19] MED LIST changes: -NATALIZUMAB OVER 1 HOUR IV ONE
[2021-02-19 09:54] LABS: BASO # 0.1 10^3/uL (0.0-0.2); BASO % 0.8 % (0.0-1.0); EOS # 0.2 10^3/uL (0.0-0.5); EOS % 3.4 % (0.0-3.0); HEMATOCRIT 42.3 % (36.0-47.0); HEMOGLOBIN 13.8 g/dl (12.0-15.5); LYMPH # 1.8 10^3/uL (1.5-5.0); LYMPH % 29.1 % (24.0-44.0); MEAN CORPUSCULAR HEMOGLOBIN 29.2 pg (27.0-33.0); MEAN CORPUSCULAR HGB CONC 32.6 g/dl (32.0-36.5); MEAN CORPUSCULAR VOLUME 89.4 fl (80.0-96.0); MONO # 0.6 10^3/uL (0.0-0.8); MONO % 10.4 % (2.0-8.0); NEUTROPHILS # 3.5 10^3/uL (1.5-8.5); PLATELET COUNT, AUTOMATED 212 10^3/uL (150-450); RED BLOOD COUNT 4.73 10^6/uL (4.00-5.40); WHITE BLOOD COUNT 6.2 10^3/uL (4.0-10.0)
[2021-02-19 10:29] LABS: ALBUMIN 4.2 GM/DL (3.2-5.2); ALT/SGPT 49 U/L (12-78); BILIRUBIN,TOTAL 0.6 MG/DL (0.2-1.0); BLOOD UREA NITROGEN 21 MG/DL (7-18); CALCIUM LEVEL 9.7 MG/DL (8.5-10.1); CARBON DIOXIDE LEVEL 29 MEQ/L (21-32); CHLORIDE LEVEL 106 MEQ/L (98-107); CHOLESTEROL LEVEL 243 MG/DL (<200); CHOLESTEROL RISK RATIO 4.263 (<5); CPK CREATINE PHOSPHOKINASE 60 U/L (26-192); CREATININE FOR GFR 0.94 MG/DL (0.55-1.30); FREE T4 1.19 NG/DL (0.76-1.46); GLOMERULAR FILTRATION RATE > 60.0 (>51); GLUCOSE, FASTING 81 MG/DL (70-100); HDL CHOLESTEROL 57 MG/DL (>40); LDL CHOLESTEROL 167 MG/DL (<100); NON-HDL-C 186 MG/DL; POTASSIUM SERUM 4.2 MEQ/L (3.5-5.1); SODIUM LEVEL 140 MEQ/L (136-145); TOTAL PROTEIN 7.4 GM/DL (6.4-8.2); TRIGLYCERIDES LEVEL 94 MG/DL (<150)
== END ==
LOC: M LAB 09:12
PROVIDERS: ATTEND Internal Medicine
DX: E03.9 Hypothyroidism, unspecified (principal)

== ENCOUNTER 2021-03-04 11:20 | Outpatient (CLI) | payer MEDICARE, MEDICAID ==
[~2021-03-04] VITALS: Ht 160 cm; Wt 92.7 kg
[2021-03-04] MEDS ORDERED: NATALIZUMAB OVER 1 HOUR IV ONE ×2 (11:30)
[2021-03-04 11:49] VITALS: BP 121/59
[2021-03-04 14:09] VITALS: BP 112/61
== END 2021-03-04 14:10 | disposition home or self-care (01) ==
LOC: M INFU 11:20
PROVIDERS: ATTEND Specialist
DX: G35 Multiple sclerosis (principal); Z88.2 Allergy status to sulfonamides
CPT/HCPCS: 96365; J2323

== ENCOUNTER → 2021-03-05 | Outpatient (CLI) | payer MEDICARE, MEDICAID ==
--- NOTE | 2021-03-05 12:33 | REPVR ---
PROCEDURE INFORMATION: Exam: MR Head Without and With Contrast Exam date and time: 03/05/2021 9:57 AM Age: 56 years old Clinical indication: Condition or disease; Multiple sclerosis; Patient HX: Routine f/u; Additional info: Ms TECHNIQUE: Imaging protocol: MR of the head without and with intravenous contrast. Contrast material: PROHANCE; Contrast volume: 18 ml; Contrast route: INTRAVENOUS (IV); COMPARISON: No relevant prior studies available. If the prior studies are made available a direct comparison will be made and an addendum will be issued. FINDINGS: Brain: Examination reveals several focal T2 hyperintense lesions in bilateral cerebral periventricular white matter consistent with demyelinating plaques in this patient with a known history of multiple sclerosis. Several of the lesions are perpendicular to the long axis of the lateral ventricles. No areas of restricted diffusion or abnormal contrast enhancement is seen to suggest active lesions. No acute infarction, masses or hemorrhage is seen. No acute intracranial abnormality is identified. No abnormal contrast enhancement is seen. There is no abnormal diffusion weighted signal intensity to suggest an acute ischemic event. On gradient echo imaging, no susceptibility changes are seen to represent parenchymal calcification or degraded blood products. There is mild diffuse cerebral atrophy present, consistent with this patient's age. Cerebral ventricles: The ventricular system demonstrates mild diffuse compensatory enlargement. Bones/joints: Unremarkable. Paranasal sinuses: Mild mucosal thickening is seen in the paranasal sinuses. Mastoid air cells: Normal as visualized. No mastoid effusion. Orbital cavity: Unremarkable. Soft tissues: Unremarkable. IMPRESSION: 1. Examination reveals several focal T2 hyperintense lesions in bilateral cerebral periventricular white matter consistent with demyelinating plaques in this patient with a known history of multiple sclerosis. Several of the lesions are perpendicular to the long axis of the lateral ventricles. No areas of restricted diffusion or abnormal contrast enhancement is seen to suggest active lesions. 2. No acute infarction, masses or hemorrhage is seen. No acute intracranial abnormality is identified. No abnormal contrast enhancement is seen. Electronically signed by: Gilberto Trent On 03/05/2021 12:33:20 PM
== END ==
LOC: M PLARAD 09:56
PROVIDERS: ATTEND Specialist
DX: G35 Multiple sclerosis (principal)

== ENCOUNTER → 2021-03-05 | Outpatient (CLI) | payer MEDICARE, MEDICAID ==
[~2021-03-05] MED LIST changes: +AMOX875T2 PO; +ATEN25TA PO; +CYCL1SOL17 OU; +FLUO-96 PO; -FLUO20CA20 PO; +LOSA50TA28 PO; -LOSA50TA88 PO; +MIRA1POW3 PO; +OCUVTAB8 PO; +PRED20TA PO; +PREDOPD OU
== END ==
LOC: M PLARAD 10:05
PROVIDERS: ATTEND Pain Medicine Interventional Pain Medicine
DX: R93.7 Abnormal findings on diagnostic imaging of other parts of musculoskeletal system (principal); M54.12 Radiculopathy, cervical region

== ENCOUNTER 2021-04-01 11:23 | Outpatient (CLI) | payer MEDICARE, MEDICAID ==
[~2021-04-01] VITALS: Ht 160 cm; Wt 92.7 kg
[~2021-04-01 11:23] MED LIST changes: -AMOX875T2 PO; -ATEN25TA PO; -CYCL1SOL17 OU; -FLUO-96 PO; +FLUO20CA20 PO; -LOSA50TA28 PO; +LOSA50TA88 PO; -MIRA1POW3 PO; +NATALIZUMAB OVER 1 HOUR IV ONE; -OCUVTAB8 PO; -PRED20TA PO; -PREDOPD OU
[2021-04-01 11:32] VITALS: BP 123/69
[2021-04-01 13:10] VITALS: BP 117/67
== END 2021-04-01 13:00 | disposition home or self-care (01) ==
LOC: M INFU 11:23
PROVIDERS: ATTEND Specialist
DX: G35 Multiple sclerosis (principal); Z88.2 Allergy status to sulfonamides
CPT/HCPCS: 96365; J2323

== ENCOUNTER → 2021-04-23 | Outpatient (CLI) | payer MEDICARE, MEDICAID ==
[~2021-04-23] MED LIST changes: -NATALIZUMAB OVER 1 HOUR IV ONE
--- NOTE | 2021-04-23 10:15 | REP ---
INDICATION: RADICULOPATHY. COMPARISON: Comparison MRI study is from December 23, 2016. TECHNIQUE: Sagittal and axial T1 and T2-weighted scans are acquired in the usual fashion with and without fat saturation. Sequences include spin echo, turbo spin-echo, and STIR imaging sequences. FINDINGS: Lumbar vertebral body heights are preserved. There is no evidence of spondylolysis. Tip of the conus medullaris is normal in position and appearance at L1. No extra vertebral abnormality is observed. Axial and sagittal images taken at the L1-2 disc demonstrate mild diffuse disc bulging indenting the ventral margin of the thecal sac. No central canal stenosis or foraminal narrowing is seen. At the L2-3 disc level there is mild degenerative narrowing as well. Minimal disc bulging is present. At L3-4, there is minimal disc bulging. No spinal stenosis or foraminal narrowing. At L4-5, there is degenerative narrowing and desiccation in the disc. There is mild facet hypertrophy bilaterally. A minimal 2 mm grade 1 degenerative L4-5 spondylolisthesis is seen. This is a new finding. No central canal stenosis is seen. There is minimal neural foraminal narrowing bilaterally at L4-5. At L5-S1, there is central disc bulging. Mild facet hypertrophy is present. Minimal neural foraminal narrowing is visible bilaterally. IMPRESSION: Degenerative disc disease at L4-5 and L5-S1. There is minimal bilateral neural foraminal narrowing at L4-5 and L5-S1. A 2 mm L4-5 degenerative spondylolisthesis is seen. <Electronically signed by Jd Huerta > 04/23/21 [id number]
== END ==
LOC: M PLAIMG 08:49
PROVIDERS: ATTEND Nurse Practitioner Family
DX: M54.17 Radiculopathy, lumbosacral region (principal)

== ENCOUNTER 2021-04-30 11:35 | Outpatient (CLI) | payer MEDICARE, MEDICAID ==
[~2021-04-30] VITALS: Ht 160 cm; Wt 92.7 kg
[2021-04-30 11:35] VITALS: BP 113/55
[~2021-04-30 11:35] MED LIST changes: +NATALIZUMAB OVER 1 HOUR IV ONE
[2021-04-30 12:20] VITALS: BP 113/55
[2021-04-30 13:00] VITALS: BP 104/60
== END 2021-04-30 12:10 | disposition home or self-care (01) ==
LOC: M INFU 11:35
PROVIDERS: ATTEND Specialist
DX: G35 Multiple sclerosis (principal); Z88.2 Allergy status to sulfonamides
CPT/HCPCS: 96365; J2323

== ENCOUNTER 2021-05-31 11:28 | Outpatient (CLI) | payer MEDICARE, MEDICAID ==
[~2021-05-31] VITALS: Ht 160 cm; Wt 92.8 kg
[~2021-05-31 11:28] MED LIST changes: -NATALIZUMAB OVER 1 HOUR IV ONE
[2021-05-31 11:30] VITALS: BP 132/76
[2021-05-31] MEDS ORDERED: NATALIZUMAB OVER 1 HOUR IV ONE ×2 (11:30)
[2021-05-31 11:40] VITALS: BP 142/64
[2021-05-31 13:20] VITALS: BP 122/62
== END 2021-05-31 13:20 | disposition home or self-care (01) ==
LOC: M INFU 11:28
PROVIDERS: ATTEND Specialist
DX: G35 Multiple sclerosis (principal); Z88.2 Allergy status to sulfonamides
CPT/HCPCS: 96365; J2323

== ENCOUNTER 2021-06-30 11:02 | Outpatient (CLI) | payer MEDICARE, MEDICAID ==
[~2021-06-30] VITALS: Ht 160 cm; Wt 92.7 kg
[~2021-06-30 11:02] MED LIST changes: +FLUO-96 PO; -FLUO20CA20 PO; +LOSA50TA28 PO; -LOSA50TA88 PO
[2021-06-30 11:10] VITALS: BP 139/63
[2021-06-30] MEDS ORDERED: NATALIZUMAB OVER 1 HOUR IV ONE ×2 (11:30)
[2021-06-30 13:00] VITALS: BP 142/65
== END 2021-06-30 13:00 | disposition home or self-care (01) ==
LOC: M INFU 11:02
PROVIDERS: ATTEND Specialist
DX: G35 Multiple sclerosis (principal); Z88.2 Allergy status to sulfonamides
CPT/HCPCS: 96365; J2323

== ENCOUNTER → 2021-07-27 | Outpatient (CLI) | payer MEDICARE, MEDICAID ==
[~2021-07-27] MED LIST changes: -FLUO-96 PO; +FLUO20CA20 PO; -LOSA50TA28 PO; +LOSA50TA88 PO
[2021-07-27 11:00] LABS: APPEARANCE, URINE CLEAR (CLEAR); BACTERIA, URINE AUTO NEGATIVE (NEGATIVE); BASO % 0.4 % (0.0-1.0); BILIRUBIN, URINE AUTO NEGATIVE (NEGATIVE); BLOOD, URINE BLOOD NEGATIVE (NEGATIVE); COLOR, URINE YELLOW (YELLOW); EOS # 0.1 10^3/uL (0.0-0.5); EOS % 1.1 % (0.0-3.0); GLUCOSE, URINE (UA) AUTO NEGATIVE (NEGATIVE); HEMATOCRIT 42.5 % (36.0-47.0); KETONE, URINE AUTO TRACE mg/dL (NEGATIVE); LEUKOCYTE ESTERASE, URINE AUTO NEGATIVE (NEGATIVE); LYMPH # 1.9 10^3/uL (1.5-5.0); MEAN CORPUSCULAR HEMOGLOBIN 29.5 pg (27.0-33.0); MEAN CORPUSCULAR HGB CONC 32.9 g/dl (32.0-36.5); MEAN CORPUSCULAR VOLUME 89.5 fl (80.0-96.0); MONO # 0.5 10^3/uL (0.0-0.8); MONO % 5.7 % (2.0-8.0); MUCUS, URINE SMALL (NEGATIVE); NEUTROPHILS # 6.9 10^3/uL (1.5-8.5); NEUTROPHILS % 72.4 % (36.0-66.0); NITRITE, URINE AUTO NEGATIVE (NEGATIVE); PLATELET COUNT, AUTOMATED 213 10^3/uL (150-450); PROTEIN, URINE AUTO NEGATIVE (NEGATIVE); RBC, URINE AUTO 1 /HPF (0-3); RED BLOOD COUNT 4.75 10^6/uL (4.00-5.40); SPECIFIC GRAVITY URINE AUTO 1.014 (1.002-1.035); SQUAMOUS EPITHELIAL CELL UR AU 1 /HPF (0-6); UROBILINOGEN, URINE AUTO 0.2 mg/dL (0.0-2.0); WBC, URINE AUTO 0 /HPF (0-3); WHITE BLOOD COUNT 9.5 10^3/uL (4.0-10.0)
[2021-07-27 11:26] LABS: ALBUMIN 4.2 GM/DL (3.2-5.2); ALT/SGPT 42 U/L (12-78); BILIRUBIN,TOTAL 0.5 MG/DL (0.2-1.0); BLOOD UREA NITROGEN 16 MG/DL (7-18); CALCIUM LEVEL 9.9 MG/DL (8.5-10.1); CARBON DIOXIDE LEVEL 30 MEQ/L (21-32); CHLORIDE LEVEL 106 MEQ/L (98-107); CREATININE FOR GFR 0.73 MG/DL (0.55-1.30); GLOMERULAR FILTRATION RATE > 60.0 (>51); GLUCOSE, FASTING 99 MG/DL (70-100); SODIUM LEVEL 141 MEQ/L (136-145); TOTAL PROTEIN 7.3 GM/DL (6.4-8.2)
[2021-07-27 11:33] LABS: TOTAL 25(OH) VITAMIN D 37.7 NG/ML (30.0-100.0); VITAMIN B12 LEVEL 959 PG/ML (247-911)
== END ==
LOC: M LAB 10:02
PROVIDERS: ATTEND Nurse Practitioner Adult Health
DX: E87.6 Hypokalemia (principal)

== ENCOUNTER 2021-08-23 11:28 | Outpatient (CLI) | payer MEDICARE, MEDICAID ==
[~2021-08-23] VITALS: Ht 160 cm; Wt 92.7 kg
[~2021-08-23 11:28] MED LIST changes: +FLUO-96 PO; -FLUO20CA20 PO; +LOSA50TA28 PO; -LOSA50TA88 PO
[2021-08-23 11:30] VITALS: BP 169/78
[2021-08-23] MEDS ORDERED: MIRA1POW3 PO (23:50)
[2021-08-23] MEDS ORDERED: LOSA50TA28 PO (23:50)
[2021-08-23] MEDS ORDERED: CYCL1SOL17 OU (23:50)
[2021-08-23] MEDS ORDERED: OCUVTAB8 PO (23:50)
[2021-08-23] MEDS ORDERED: PRED20TA PO (23:50)
[2021-08-23] MEDS ORDERED: ATEN25TA PO (23:50)
[2021-08-23] MEDS ORDERED: PREDOPD OU (23:50)
== END 2021-08-23 12:30 | disposition home or self-care (01) ==
LOC: M INFU 11:28
PROVIDERS: ATTEND Specialist
DX: Z53.9 Procedure and treatment not carried out, unspecified reason (principal)

== ENCOUNTER 2021-08-23 12:41 | Inpatient (IN) | payer MEDICARE, MEDICAID ==
[~2021-08-23] VITALS: Ht 160 cm; Wt 80.3 kg
[2021-08-23 13:45] LABS: BASO % 0.3 % (0.0-1.0); EOS % 0.1 % (0.0-3.0); HEMATOCRIT 44.6 % (36.0-47.0); HEMOGLOBIN 14.8 g/dl (12.0-15.5); LYMPH # 1.5 10^3/uL (1.5-5.0); LYMPH % 10.5 % (24.0-44.0); MEAN CORPUSCULAR HEMOGLOBIN 30.1 pg (27.0-33.0); MEAN CORPUSCULAR HGB CONC 33.2 g/dl (32.0-36.5); MEAN CORPUSCULAR VOLUME 90.7 fl (80.0-96.0); MONO # 0.3 10^3/uL (0.0-0.8); MONO % 1.8 % (2.0-8.0); NEUTROPHILS # 12.5 10^3/uL (1.5-8.5); NEUTROPHILS % 86.6 % (36.0-66.0); PLATELET COUNT, AUTOMATED 205 10^3/uL (150-450); RED BLOOD COUNT 4.92 10^6/uL (4.00-5.40); WHITE BLOOD COUNT 14.5 10^3/uL (4.0-10.0)
[2021-08-23 14:25] LABS: ALBUMIN 3.8 GM/DL (3.2-5.2); ALT/SGPT 122 U/L (12-78); BILIRUBIN,DIRECT 0.2 MG/DL (0.0-0.2); BILIRUBIN,TOTAL 0.7 MG/DL (0.2-1.0); BLOOD UREA NITROGEN 26 MG/DL (7-18); CALCIUM LEVEL 9.4 MG/DL (8.5-10.1); CARBON DIOXIDE LEVEL 33 MEQ/L (21-32); CHLORIDE LEVEL 103 MEQ/L (98-107); CREATININE FOR GFR 0.92 MG/DL (0.55-1.30); GLOMERULAR FILTRATION RATE > 60.0 (>51); GLUCOSE, FASTING 87 MG/DL (70-100); SODIUM LEVEL 142 MEQ/L (136-145); THYROID STIMULATING HORMONE 0.885 uIU/ML (0.358-3.740)
[2021-08-23] MEDS ORDERED: methylPREDNISolone 1,000 MG, VIAL MATE ADAPTER 1 EACH in NS 250 ML IV ONE (19:50)
[2021-08-23] MEDS ORDERED: PROHANCE 279.3MG/ML 15ML VIAL As Ordered ONE (20:37)
[2021-08-23] MEDS ORDERED: PREDOPD OU (23:50)
[2021-08-23] MEDS ORDERED: OCUVTAB8 PO (23:50)
[2021-08-23] MEDS ORDERED: MIRA1POW3 PO (23:50)
[2021-08-23] MEDS ORDERED: PRED20TA PO (23:50)
[2021-08-23] MEDS ORDERED: CYCL1SOL17 OU (23:50)
[2021-08-23] MEDS ORDERED: LOSA50TA28 PO (23:50)
[2021-08-23] MEDS ORDERED: ATEN25TA PO (23:50)
[2021-08-23] MEDS ORDERED: HOME MED LIST COMPLETE! XX SCH (23:55)
[2021-08-24] MEDS ORDERED: ACETAMINOPHEN TAB 650MG DOSE (2X325MG) PO PRN (00:15)
[2021-08-24 04:20] VITALS: BP 160/83
[2021-08-24] MEDS ORDERED: MIRALAX *UNIT DOSE* 17GM PACKET PO PRN (05:35)
[2021-08-24] MEDS ORDERED: NORCO, ANEXSIA 5/325MG TABLET (HYDROcodone/ACETAMINOPHEN) PO PRN (05:35)
[2021-08-24] MEDS ORDERED: clonazePAM 0.5 MG TAB PO PRN (05:35)
[2021-08-24] MEDS: LEVOTHYROXINE 75MCG TABLET (0.075MG) PO SCH (05:59)
[2021-08-24] MEDS: HEPARIN SOD (PORCINE) 5000UNITS/ML 1ML VIAL/SYRINGE SC SCH ×3 (05:59→21:22)
[2021-08-24 06:00] VITALS: BP 160/83
[2021-08-24 06:31] LABS: VENOUS BASE EXCESS 3.4 (-2.0-2.0); VENOUS HCO3 27.8 MEQ/L (23.0-27.0); VENOUS O2 SATURATION 85.8 % (60.0-80.0); VENOUS PARTIAL PRESSURE CO2 41.5 mmHg (38.0-50.0); VENOUS PARTIAL PRESSURE O2 48.8 mmHg (30.0-50.0); VENOUS PH 7.444 UNITS (7.330-7.430); VENOUS STANDARD HCO3 27.2 MEQ/L; VENOUS TOTAL CO2 29.1 MEQ/L (24.0-28.0)
[2021-08-24] MEDS ORDERED: atenoloL 50 MG TAB PO SCH (09:00)
[2021-08-24] MEDS: methylPREDNISolone 1,000 MG, VIAL MATE ADAPTER 1 EACH in NS 250 ML IV SCH (09:53)
[2021-08-24] MEDS: CYCLOPENTOLATE 1% OPHTH SOLN 2 ML BTL OU SCH ×2 (09:53→21:21)
[2021-08-24] MEDS: DOCUSATE SODIUM 100MG CAPSULE PO SCH ×2 (09:53→21:20)
[2021-08-24] MEDS: hydroCHLOROthiazide 12.5 MG CAPSULE PO SCH ×2 (09:53→18:03)
[2021-08-24] MEDS: prednisoLONE ACET 1% OPHTH SUSP 5ML OU SCH ×4 (09:53→21:21)
[2021-08-24] MEDS: LOSARTAN 50MG TABLET PO SCH ×2 (09:55→21:17)
[2021-08-24] MEDS: atenoloL 25 MG TAB PO SCH ×2 (09:55→21:17)
[2021-08-24] MEDS: amLODIPine 5 MG TAB PO SCH ×2 (09:55→21:27)
[2021-08-24 14:00] VITALS: BP 149/83
[2021-08-24 21:18] VITALS: BP 154/84
[2021-08-25 05:32] VITALS: BP 151/77
[2021-08-25] MEDS: LEVOTHYROXINE 75MCG TABLET (0.075MG) PO SCH (05:37)
[2021-08-25] MEDS: HEPARIN SOD (PORCINE) 5000UNITS/ML 1ML VIAL/SYRINGE SC SCH ×3 (05:37→22:33)
[2021-08-25 05:59] LABS: HEMATOCRIT 42.7 % (36.0-47.0); HEMOGLOBIN 14.2 g/dl (12.0-15.5); MEAN CORPUSCULAR HEMOGLOBIN 29.6 pg (27.0-33.0); MEAN CORPUSCULAR HGB CONC 33.3 g/dl (32.0-36.5); PLATELET COUNT, AUTOMATED 237 10^3/uL (150-450); WHITE BLOOD COUNT 20.8 10^3/uL (4.0-10.0)
[2021-08-25 06:29] LABS: BLOOD UREA NITROGEN 26 MG/DL (7-18); CALCIUM LEVEL 9.6 MG/DL (8.5-10.1); CARBON DIOXIDE LEVEL 28 MEQ/L (21-32); CHLORIDE LEVEL 105 MEQ/L (98-107); CREATININE FOR GFR 0.91 MG/DL (0.55-1.30); GLOMERULAR FILTRATION RATE > 60.0 (>51); GLUCOSE, FASTING 129 MG/DL (70-100); POTASSIUM SERUM 3.8 MEQ/L (3.5-5.1); SODIUM LEVEL 140 MEQ/L (136-145)
[2021-08-25] MEDS: DOCUSATE SODIUM 100MG CAPSULE PO SCH ×2 (09:26→20:33)
[2021-08-25] MEDS: LOSARTAN 50MG TABLET PO SCH ×2 (09:27→20:34)
[2021-08-25] MEDS: amLODIPine 5 MG TAB PO SCH ×2 (09:27→20:35)
[2021-08-25] MEDS: hydroCHLOROthiazide 12.5 MG CAPSULE PO SCH ×2 (09:27→17:42)
[2021-08-25] MEDS: atenoloL 25 MG TAB PO SCH ×2 (09:27→20:35)
[2021-08-25] MEDS: methylPREDNISolone 1,000 MG, VIAL MATE ADAPTER 1 EACH in NS 250 ML IV SCH (09:28)
[2021-08-25] MEDS: CYCLOPENTOLATE 1% OPHTH SOLN 2 ML BTL OU SCH ×2 (09:28→20:35)
[2021-08-25] MEDS: prednisoLONE ACET 1% OPHTH SUSP 5ML OU SCH ×4 (09:28→20:35)
[2021-08-25 14:00] VITALS: BP 124/78
[2021-08-25 22:00] VITALS: BP 138/82
[2021-08-25] MEDS: PIPERACILLIN/TAZOBACTAM SOD 3.375 GM in D5W MINI-BAG PLUS 50 ML IV SCH (22:33)
[2021-08-25] MEDS ORDERED: NS 500 ML IV ONE (23:05)
[2021-08-26] MEDS: HEPARIN SOD (PORCINE) 5000UNITS/ML 1ML VIAL/SYRINGE SC SCH ×3 (05:09→23:06)
[2021-08-26] MEDS: PIPERACILLIN/TAZOBACTAM SOD 3.375 GM in D5W MINI-BAG PLUS 50 ML IV SCH ×4 (05:09→23:06)
[2021-08-26] MEDS: LEVOTHYROXINE 75MCG TABLET (0.075MG) PO SCH (05:09)
[2021-08-26 06:00] VITALS: BP 133/79
[2021-08-26 06:14] LABS: HEMOGLOBIN 13.9 g/dl (12.0-15.5); MEAN CORPUSCULAR HEMOGLOBIN 29.6 pg (27.0-33.0); MEAN CORPUSCULAR HGB CONC 33.1 g/dl (32.0-36.5); MEAN CORPUSCULAR VOLUME 89.4 fl (80.0-96.0); PLATELET COUNT, AUTOMATED 240 10^3/uL (150-450); WHITE BLOOD COUNT 19.2 10^3/uL (4.0-10.0)
[2021-08-26 06:23] LABS: BLOOD UREA NITROGEN 26 MG/DL (7-18); CALCIUM LEVEL 9.1 MG/DL (8.5-10.1); CARBON DIOXIDE LEVEL 30 MEQ/L (21-32); CHLORIDE LEVEL 107 MEQ/L (98-107); GLOMERULAR FILTRATION RATE > 60.0 (>51); GLUCOSE, FASTING 89 MG/DL (70-100); MAGNESIUM LEVEL 2.4 MG/DL (1.8-2.4); SODIUM LEVEL 140 MEQ/L (136-145)
[2021-08-26 08:00] VITALS: BP 137/76
[2021-08-26] MEDS: methylPREDNISolone 1,000 MG, VIAL MATE ADAPTER 1 EACH in NS 250 ML IV SCH (09:19)
[2021-08-26] MEDS: DOCUSATE SODIUM 100MG CAPSULE PO SCH ×2 (09:24→20:17)
[2021-08-26] MEDS: hydroCHLOROthiazide 12.5 MG CAPSULE PO SCH ×2 (09:24→17:47)
[2021-08-26] MEDS: atenoloL 25 MG TAB PO SCH ×2 (09:26→20:18)
[2021-08-26] MEDS: LOSARTAN 50MG TABLET PO SCH ×2 (09:27→20:17)
[2021-08-26] MEDS: amLODIPine 5 MG TAB PO SCH ×2 (09:27→20:18)
[2021-08-26] MEDS: prednisoLONE ACET 1% OPHTH SUSP 5ML OU SCH ×4 (09:28→20:18)
[2021-08-26] MEDS: CYCLOPENTOLATE 1% OPHTH SOLN 2 ML BTL OU SCH ×2 (09:28→20:18)
[2021-08-26 14:00] VITALS: BP 131/74
[2021-08-26 22:00] VITALS: BP 119/74
[2021-08-27] MEDS: PIPERACILLIN/TAZOBACTAM SOD 3.375 GM in D5W MINI-BAG PLUS 50 ML IV SCH ×4 (04:44→21:59)
[2021-08-27] MEDS: LEVOTHYROXINE 75MCG TABLET (0.075MG) PO SCH (05:34)
[2021-08-27] MEDS: HEPARIN SOD (PORCINE) 5000UNITS/ML 1ML VIAL/SYRINGE SC SCH ×3 (05:34→21:59)
[2021-08-27 06:00] VITALS: BP 152/84
[2021-08-27 07:55] LABS: HEMATOCRIT 41.2 % (36.0-47.0); HEMOGLOBIN 13.6 g/dl (12.0-15.5); MEAN CORPUSCULAR HEMOGLOBIN 29.5 pg (27.0-33.0); MEAN CORPUSCULAR VOLUME 89.4 fl (80.0-96.0); PLATELET COUNT, AUTOMATED 232 10^3/uL (150-450); RED BLOOD COUNT 4.61 10^6/uL (4.00-5.40); WHITE BLOOD COUNT 15.5 10^3/uL (4.0-10.0)
[2021-08-27 08:52] LABS: BLOOD UREA NITROGEN 28 MG/DL (7-18); CALCIUM LEVEL 9.3 MG/DL (8.5-10.1); CARBON DIOXIDE LEVEL 30 MEQ/L (21-32); CHLORIDE LEVEL 105 MEQ/L (98-107); CREATININE FOR GFR 0.91 MG/DL (0.55-1.30); GLOMERULAR FILTRATION RATE > 60.0 (>51); GLUCOSE, FASTING 96 MG/DL (70-100); POTASSIUM SERUM 3.6 MEQ/L (3.5-5.1); SODIUM LEVEL 142 MEQ/L (136-145)
[2021-08-27] MEDS: DOCUSATE SODIUM 100MG CAPSULE PO SCH ×2 (09:19→21:57)
[2021-08-27] MEDS: methylPREDNISolone 1,000 MG, VIAL MATE ADAPTER 1 EACH in NS 250 ML IV SCH (09:19)
[2021-08-27] MEDS: hydroCHLOROthiazide 12.5 MG CAPSULE PO SCH ×2 (09:19→17:35)
[2021-08-27] MEDS: LOSARTAN 50MG TABLET PO SCH ×2 (09:19→21:57)
[2021-08-27] MEDS: OCUVITE 1 TAB PO SCH (09:19)
[2021-08-27] MEDS: atenoloL 25 MG TAB PO SCH ×2 (09:20→21:58)
[2021-08-27] MEDS: amLODIPine 5 MG TAB PO SCH ×2 (09:20→21:58)
[2021-08-27] MEDS: prednisoLONE ACET 1% OPHTH SUSP 5ML OU SCH ×4 (09:21→21:59)
[2021-08-27] MEDS: CYCLOPENTOLATE 1% OPHTH SOLN 2 ML BTL OU SCH ×2 (09:21→21:58)
[2021-08-27 14:00] VITALS: BP 148/80
[2021-08-27 22:00] VITALS: BP 143/72
[2021-08-28] MEDS: PIPERACILLIN/TAZOBACTAM SOD 3.375 GM in D5W MINI-BAG PLUS 50 ML IV SCH ×2 (04:36→09:18)
[2021-08-28 06:00] VITALS: BP 157/79
[2021-08-28] MEDS: LEVOTHYROXINE 75MCG TABLET (0.075MG) PO SCH (06:08)
[2021-08-28] MEDS: HEPARIN SOD (PORCINE) 5000UNITS/ML 1ML VIAL/SYRINGE SC SCH (06:08)
[2021-08-28 06:22] LABS: HEMATOCRIT 40.2 % (36.0-47.0); HEMOGLOBIN 13.2 g/dl (12.0-15.5); MEAN CORPUSCULAR HEMOGLOBIN 29.3 pg (27.0-33.0); MEAN CORPUSCULAR HGB CONC 32.8 g/dl (32.0-36.5); MEAN CORPUSCULAR VOLUME 89.1 fl (80.0-96.0); PLATELET COUNT, AUTOMATED 235 10^3/uL (150-450); RED BLOOD COUNT 4.51 10^6/uL (4.00-5.40); WHITE BLOOD COUNT 12.9 10^3/uL (4.0-10.0)
[2021-08-28 06:46] LABS: BLOOD UREA NITROGEN 30 MG/DL (7-18); CALCIUM LEVEL 9.1 MG/DL (8.5-10.1); CARBON DIOXIDE LEVEL 31 MEQ/L (21-32); CHLORIDE LEVEL 105 MEQ/L (98-107); CREATININE FOR GFR 0.92 MG/DL (0.55-1.30); GLOMERULAR FILTRATION RATE > 60.0 (>51); GLUCOSE, FASTING 112 MG/DL (70-100); POTASSIUM SERUM 3.9 MEQ/L (3.5-5.1); SODIUM LEVEL 139 MEQ/L (136-145)
[2021-08-28] MEDS: DOCUSATE SODIUM 100MG CAPSULE PO SCH (09:16)
[2021-08-28] MEDS: OCUVITE 1 TAB PO SCH (09:16)
[2021-08-28] MEDS: hydroCHLOROthiazide 12.5 MG CAPSULE PO SCH (09:17)
[2021-08-28] MEDS: LOSARTAN 50MG TABLET PO SCH (09:17)
[2021-08-28] MEDS: amLODIPine 5 MG TAB PO SCH (09:17)
[2021-08-28 09:18] VITALS: BP 136/75
[2021-08-28] MEDS: CYCLOPENTOLATE 1% OPHTH SOLN 2 ML BTL OU SCH (09:18)
[2021-08-28] MEDS ORDERED: AMOX875T2 PO (09:18)
[2021-08-28] MEDS: prednisoLONE ACET 1% OPHTH SUSP 5ML OU SCH (09:18)
[2021-08-28] MEDS: atenoloL 25 MG TAB PO SCH (09:18)
== END 2021-08-28 11:24 | disposition home or self-care (01) | DRG 59 ==
LOC: M ED 12:41 → M ED INP 08-24 00:15 → ENRESERV 08-24 03:45 → M MSPAV 08-24 04:16
PROVIDERS: ADMIT Internal Medicine; ATTEND Internal Medicine
DX: G35 Multiple sclerosis (principal); F11.20 Opioid dependence, uncomplicated; N39.0 Urinary tract infection, site not specified; I10 Essential (primary) hypertension; R74.01 Elevation of levels of liver transaminase levels; E03.9 Hypothyroidism, unspecified; B96.20 Unspecified Escherichia coli [E. coli] as the cause of diseases classified elsewhere; R32 Unspecified urinary incontinence; B95.2 Enterococcus as the cause of diseases classified elsewhere; Z20.822 Contact with and (suspected) exposure to COVID-19; Z79.52 Long term (current) use of systemic steroids; Z79.899 Other long term (current) drug therapy; Z88.2 Allergy status to sulfonamides

== ENCOUNTER 2021-09-15 10:31 | Outpatient (CLI) | payer MEDICARE, MEDICAID ==
[~2021-09-15] VITALS: Ht 160 cm; Wt 80.3 kg
[2021-09-15 10:30] VITALS: BP 134/62
[~2021-09-15 10:31] MED LIST changes: +AMOX875T2 PO; +ATEN25TA PO; +CYCL1SOL17 OU; +MIRA1POW3 PO; +NATALIZUMAB OVER 1 HOUR IV ONE; +OCUVTAB8 PO; +PRED20TA PO; +PREDOPD OU
[2021-09-15 12:15] VITALS: BP 130/74
== END 2021-09-15 12:15 | disposition home or self-care (01) ==
LOC: M INFU 10:31
PROVIDERS: ATTEND Specialist
DX: G35 Multiple sclerosis (principal); Z88.2 Allergy status to sulfonamides
CPT/HCPCS: 96365; J2323

== ENCOUNTER → 2021-09-23 | Outpatient (CLI) | payer MEDICARE, MEDICAID ==
[~2021-09-23] MED LIST changes: -NATALIZUMAB OVER 1 HOUR IV ONE
[2021-09-23 10:51] LABS: APPEARANCE, URINE CLEAR (CLEAR); BACTERIA, URINE AUTO 3+ (NEGATIVE); BILIRUBIN, URINE AUTO NEGATIVE (NEGATIVE); BLOOD, URINE BLOOD NEGATIVE (NEGATIVE); COLOR, URINE YELLOW (YELLOW); GLUCOSE, URINE (UA) AUTO NEGATIVE (NEGATIVE); KETONE, URINE AUTO NEGATIVE (NEGATIVE); LEUKOCYTE ESTERASE, URINE AUTO NEGATIVE (NEGATIVE); MUCUS, URINE SMALL (NEGATIVE); NITRITE, URINE AUTO POSITIVE (NEGATIVE); PROTEIN, URINE AUTO NEGATIVE (NEGATIVE); RBC, URINE AUTO 1 /HPF (0-3); SQUAMOUS EPITHELIAL CELL UR AU 0 /HPF (0-6); UROBILINOGEN, URINE AUTO 0.2 mg/dL (0.0-2.0); WBC, URINE AUTO 4 /HPF (0-3)
[2021-09-23 10:52] LABS: BASO # 0.1 10^3/uL (0.0-0.2); BASO % 0.8 % (0.0-1.0); EOS # 0.2 10^3/uL (0.0-0.5); EOS % 1.3 % (0.0-3.0); HEMATOCRIT 41.4 % (36.0-47.0); HEMOGLOBIN 13.2 g/dl (12.0-15.5); LYMPH # 3.8 10^3/uL (1.5-5.0); LYMPH % 32.4 % (24.0-44.0); MEAN CORPUSCULAR HEMOGLOBIN 29.4 pg (27.0-33.0); MEAN CORPUSCULAR HGB CONC 31.9 g/dl (32.0-36.5); MEAN CORPUSCULAR VOLUME 92.2 fl (80.0-96.0); MONO # 0.9 10^3/uL (0.0-0.8); MONO % 7.8 % (2.0-8.0); NEUTROPHILS # 6.6 10^3/uL (1.5-8.5); NEUTROPHILS % 55.7 % (36.0-66.0); PLATELET COUNT, AUTOMATED 267 10^3/uL (150-450); RED BLOOD COUNT 4.49 10^6/uL (4.00-5.40); WHITE BLOOD COUNT 11.9 10^3/uL (4.0-10.0)
[2021-09-23 11:13] LABS: ALBUMIN 3.4 GM/DL (3.2-5.2); ALT/SGPT 48 U/L (12-78); BILIRUBIN,TOTAL 0.7 MG/DL (0.2-1.0); BLOOD UREA NITROGEN 16 MG/DL (7-18); CALCIUM LEVEL 9.1 MG/DL (8.5-10.1); CARBON DIOXIDE LEVEL 31 MEQ/L (21-32); CHLORIDE LEVEL 109 MEQ/L (98-107); CHOLESTEROL LEVEL 245 MG/DL (<200); CREATININE FOR GFR 0.78 MG/DL (0.55-1.30); GLOMERULAR FILTRATION RATE > 60.0 (>51); GLUCOSE, FASTING 81 MG/DL (70-100); HDL CHOLESTEROL 98 MG/DL (>40); LDL CHOLESTEROL 131 MG/DL (<100); NON-HDL-C 147 MG/DL; SODIUM LEVEL 144 MEQ/L (136-145); TOTAL PROTEIN 6.8 GM/DL (6.4-8.2); TRIGLYCERIDES LEVEL 79 MG/DL (<150)
== END ==
LOC: M LAB 09:28
PROVIDERS: ATTEND Internal Medicine
DX: G35 Multiple sclerosis (principal); E78.00 Pure hypercholesterolemia, unspecified

== ENCOUNTER 2021-10-13 13:28 | Outpatient (CLI) | payer MEDICARE, MEDICAID ==
[~2021-10-13] VITALS: Ht 160 cm; Wt 80.5 kg
[2021-10-13] MEDS ORDERED: NATALIZUMAB OVER 1 HOUR IV ONE ×2 (13:30)
[2021-10-13 13:55] VITALS: BP 124/63
[2021-10-13 15:09] VITALS: BP 120/59
== END 2021-10-13 15:15 | disposition home or self-care (01) ==
LOC: M INFU 13:28
PROVIDERS: ATTEND Specialist
DX: G35 Multiple sclerosis (principal); Z88.2 Allergy status to sulfonamides
CPT/HCPCS: 96365; J2323

== ENCOUNTER → 2021-11-18 | Outpatient (CLI) | payer MEDICARE, MEDICAID | LOC: M WHC 10:44 | PROVIDERS: ATTEND Internal Medicine | DX: Z12.31 Encounter for screening mammogram for malignant neoplasm of breast (principal) ==

== ENCOUNTER 2021-12-03 10:54 | Emergency (ER) | payer MEDICARE, MEDICAID ==
[~2021-12-03] VITALS: Ht 160 cm; Wt 90.9 kg
[2021-12-03] MEDS ORDERED: BEBTELOVIMAB 175MG 2ML VIAL (EUA) IV ONE (12:55)
[2021-12-03] MEDS ORDERED: NS 1,000 ML IV SCH (12:55)
[2021-12-03] MEDS ORDERED: ALBUTEROL 90 MCG/ACT 8GM HFA INHALER INH PRN (12:55)
[2021-12-03] MEDS ORDERED: methylPREDNISolone 125MG 2ML VIAL IV PRN (12:55)
[2021-12-03] MEDS ORDERED: diphenhydrAMINE 50MG/ML VIAL (J1200) IV PRN (12:55)
[2021-12-03] MEDS ORDERED: ACETAMINOPHEN TAB 650MG DOSE (2X325MG) PO PRN (12:55)
[2021-12-03] MEDS ORDERED: EPINEPHrine INJ 1 MG/ML 1ML AMP IM PRN (12:55)
[2021-12-03] MEDS ORDERED: ALBUTEROL SULFATE 2.5 MG/0.5 ML INH NEB SOLN INH PRN (12:55)
[2021-12-03] MEDS ORDERED: ACETAMINOPHEN TAB 650MG DOSE (2X325MG) PO ONE (14:30)
[2021-12-03 14:45] VITALS: BP 139/65
== END 2021-12-03 14:35 | disposition home or self-care (01) ==
LOC: M ED 10:54
DX: U07.1 COVID-19 (principal); G35 Multiple sclerosis; I10 Essential (primary) hypertension; Z88.2 Allergy status to sulfonamides; Z79.899 Other long term (current) drug therapy

== ENCOUNTER 2021-12-03 15:44 | Outpatient (CLI) | payer MEDICARE, MEDICAID ==
[~2021-12-03] VITALS: Ht 160 cm; Wt 90.9 kg
[2021-12-03 14:40] VITALS: BP 139/65
[2021-12-03] MEDS ORDERED: diphenhydrAMINE 50MG/ML VIAL (J1200) IV PRN (16:25)
[2021-12-03] MEDS ORDERED: ACETAMINOPHEN TAB 650MG DOSE (2X325MG) PO PRN (16:25)
[2021-12-03] MEDS ORDERED: ALBUTEROL 90 MCG/ACT 8GM HFA INHALER INH PRN (16:25)
[2021-12-03] MEDS ORDERED: methylPREDNISolone 125MG 2ML VIAL IV PRN (16:25)
[2021-12-03] MEDS ORDERED: EPINEPHrine INJ 1 MG/ML 1ML AMP IM PRN (16:25)
[2021-12-03] MEDS ORDERED: NS 1,000 ML IV SCH (16:25)
[2021-12-03] MEDS ORDERED: ALBUTEROL SULFATE 2.5 MG/0.5 ML INH NEB SOLN INH PRN (16:25)
[2021-12-03 16:45] VITALS: BP 139/65
[2021-12-03 17:00] VITALS: BP 136/59
[2021-12-03] MEDS ORDERED: BEBTELOVIMAB 175MG 2ML VIAL (EUA) IV ONE (17:00)
[2021-12-03 17:49] VITALS: BP 128/60
== END 2021-12-03 17:55 | disposition home or self-care (01) ==
LOC: M OPCLI4 15:44
PROVIDERS: ATTEND Internal Medicine
DX: U07.1 COVID-19 (principal); Z88.2 Allergy status to sulfonamides

== ENCOUNTER 2021-12-22 10:02 | Outpatient (CLI) | payer MEDICARE, MEDICAID ==
[~2021-12-22] VITALS: Ht 160 cm; Wt 90.3 kg
[2021-12-22 10:19] VITALS: BP 116/57
[2021-12-22] MEDS ORDERED: NATALIZUMAB OVER 1 HOUR IV ONE ×2 (10:30)
[2021-12-22 11:50] VITALS: BP 142/78
== END 2021-12-22 11:50 | disposition home or self-care (01) ==
LOC: M INFU 10:02
PROVIDERS: ATTEND Specialist
DX: G35 Multiple sclerosis (principal); Z88.2 Allergy status to sulfonamides
CPT/HCPCS: 96365; J2323

== ENCOUNTER 2022-02-02 14:00 | Outpatient (CLI) | payer MEDICARE, MEDICAID ==
[~2022-02-02] VITALS: Ht 160 cm; Wt 88.0 kg
[~2022-02-02 14:00] MED LIST changes: +NATALIZUMAB OVER 1 HOUR IV ONE
[2022-02-02 14:10] VITALS: BP 120/60
[2022-02-02 15:35] VITALS: BP 129/74
== END 2022-02-02 15:35 | disposition home or self-care (01) ==
LOC: M INFU 14:00
PROVIDERS: ATTEND Specialist
DX: G35 Multiple sclerosis (principal); Z88.2 Allergy status to sulfonamides
CPT/HCPCS: 96365; J2323

== ENCOUNTER 2022-03-15 07:30 | Outpatient (CLI) | payer MEDICARE, MEDICAID ==
[~2022-03-15] VITALS: Ht 160 cm; Wt 87.7 kg
[2022-03-15 08:13] VITALS: BP 121/61
[2022-03-15 09:07] VITALS: BP 104/68
== END 2022-03-15 09:10 | disposition home or self-care (01) ==
LOC: M INFU 07:30
PROVIDERS: ATTEND Specialist
DX: G35 Multiple sclerosis (principal); Z88.2 Allergy status to sulfonamides
CPT/HCPCS: 96365; J2323

== ENCOUNTER 2022-04-09 10:52 | Emergency (ER) | payer MEDICARE, MEDICAID ==
[~2022-04-09] VITALS: Ht 160 cm; Wt 94.1 kg
[~2022-04-09 10:52] MED LIST changes: -NATALIZUMAB OVER 1 HOUR IV ONE
[2022-04-09] MEDS ORDERED: CLON0.5T17 PO (11:32)
[2022-04-09] MEDS ORDERED: DALF10TA2 PO (11:32)
[2022-04-09] MEDS ORDERED: D 1010002 PO (11:32)
[2022-04-09] MEDS ORDERED: PREG75CA2 PO (11:32)
[2022-04-09] MEDS ORDERED: TYSA1INJ IV (11:32)
[2022-04-09] MEDS ORDERED: LYRI75CA PO (11:32)
[2022-04-09] MEDS ORDERED: TIZA4CAP PO (11:32)
[2022-04-09] MEDS ORDERED: ACET1TAB55 PO (11:32)
[2022-04-09] MEDS ORDERED: PRED5TA PO (11:32)
[2022-04-09] MEDS ORDERED: ESTR62CR PV (11:32)
[2022-04-09] MEDS ORDERED: NS 1,000 ML IV ONE (12:30)
[2022-04-09 13:02] LABS: BASO # 0.1 10^3/uL (0.0-0.2); BASO % 0.5 % (0.0-1.0); EOS # 0.1 10^3/uL (0.0-0.5); EOS % 0.5 % (0.0-3.0); HEMATOCRIT 40.5 % (36.0-47.0); HEMOGLOBIN 13.1 g/dl (12.0-15.5); LYMPH # 1.7 10^3/uL (1.5-5.0); LYMPH % 15.2 % (24.0-44.0); MEAN CORPUSCULAR HEMOGLOBIN 29.8 pg (27.0-33.0); MEAN CORPUSCULAR HGB CONC 32.3 g/dl (32.0-36.5); MEAN CORPUSCULAR VOLUME 92.3 fl (80.0-96.0); MONO # 0.5 10^3/uL (0.0-0.8); MONO % 4.5 % (2.0-8.0); NEUTROPHILS # 8.7 10^3/uL (1.5-8.5); NEUTROPHILS % 78.9 % (36.0-66.0); PLATELET COUNT, AUTOMATED 221 10^3/uL (150-450); RED BLOOD COUNT 4.39 10^6/uL (4.00-5.40)
[2022-04-09 13:43] LABS: ALBUMIN 3.7 GM/DL (3.2-5.2); ALT/SGPT 29 U/L (12-78); BILIRUBIN,DIRECT 0.2 MG/DL (0.0-0.2); BILIRUBIN,TOTAL 0.7 MG/DL (0.2-1.0); BLOOD UREA NITROGEN 22 MG/DL (7-18); CALCIUM LEVEL 9.1 MG/DL (8.5-10.1); CARBON DIOXIDE LEVEL 30 MEQ/L (21-32); CHLORIDE LEVEL 104 MEQ/L (98-107); CREATININE FOR GFR 0.97 MG/DL (0.55-1.30); GLOMERULAR FILTRATION RATE > 60.0 (>51); GLUCOSE, FASTING 96 MG/DL (70-100); POTASSIUM SERUM 3.3 MEQ/L (3.5-5.1); SODIUM LEVEL 141 MEQ/L (136-145); TOTAL PROTEIN 7.1 GM/DL (6.4-8.2)
[2022-04-09] MEDS ORDERED: POTASSIUM CHLORIDE 10MEQ SR TABLET PO ONE (13:45)
[2022-04-09 14:45] VITALS: BP 130/59
== END 2022-04-09 15:16 | disposition home or self-care (01) ==
LOC: M ED 10:52
DX: I95.1 Orthostatic hypotension (principal); I10 Essential (primary) hypertension; R32 Unspecified urinary incontinence; G35 Multiple sclerosis; Z88.1 Allergy status to other antibiotic agents; Z88.2 Allergy status to sulfonamides

== ENCOUNTER 2022-04-29 12:05 | Outpatient (CLI) | payer MEDICARE, MEDICAID ==
[~2022-04-29] VITALS: Ht 160 cm; Wt 89.5 kg
[2022-04-29 12:05] VITALS: BP 118/59
[~2022-04-29 12:05] MED LIST changes: +ACET1TAB55 PO; +CLON0.5T17 PO; +D 1010002 PO; +DALF10TA2 PO; +ESTR62CR PV; +LYRI75CA PO; +NATALIZUMAB OVER 1 HOUR IV ONE; +PRED5TA PO; +PREG75CA2 PO; +TIZA4CAP PO
[2022-04-29 13:43] VITALS: BP 115/58
[2022-04-29 13:45] VITALS: BP 115/58
== END 2022-04-29 13:45 | disposition home or self-care (01) ==
LOC: M INFU 12:05
PROVIDERS: ATTEND Specialist
DX: G35 Multiple sclerosis (principal); Z88.2 Allergy status to sulfonamides
CPT/HCPCS: 96365; J2323

== ENCOUNTER → 2022-08-12 | Outpatient (CLI) | payer MEDICARE, MEDICAID ==
[~2022-08-12] MED LIST changes: -NATALIZUMAB OVER 1 HOUR IV ONE
== END ==
LOC: M PLALAB 09:07
PROVIDERS: ATTEND Nurse Practitioner Family
DX: N95.0 Postmenopausal bleeding (principal); Z80.49 Family history of malignant neoplasm of other genital organs; Z80.3 Family history of malignant neoplasm of breast

== ENCOUNTER → 2022-08-12 | Outpatient (REF) | payer MEDICARE, MEDICAID | LOC: M PLALAB 10:10 | PROVIDERS: ATTEND Nurse Practitioner Family | DX: N95.0 Postmenopausal bleeding (principal); Z12.4 Encounter for screening for malignant neoplasm of cervix | CPT/HCPCS: 87624; G0123 ==

== ENCOUNTER → 2022-09-20 | Outpatient (CLI) | payer MEDICARE, MEDICAID | LOC: M WHC 10:17 | PROVIDERS: ATTEND Nurse Practitioner Family | DX: N95.0 Postmenopausal bleeding (principal) ==

== ENCOUNTER → 2022-10-14 | Outpatient (CLI) | payer MEDICARE, MEDICAID ==
[2022-10-14 15:49] LABS: BASO # 0.1 10^3/uL (0.0-0.2); BASO % 0.6 % (0.0-1.0); EOS # 0.1 10^3/uL (0.0-0.5); EOS % 1.3 % (0.0-3.0); HEMATOCRIT 41.2 % (36.0-47.0); HEMOGLOBIN 13.3 g/dl (12.0-15.5); LYMPH # 1.4 10^3/uL (1.5-5.0); LYMPH % 17.5 % (24.0-44.0); MEAN CORPUSCULAR HGB CONC 32.3 g/dl (32.0-36.5); MONO # 0.5 10^3/uL (0.0-0.8); MONO % 6.9 % (2.0-8.0); NEUTROPHILS # 5.8 10^3/uL (1.5-8.5); NEUTROPHILS % 73.4 % (36.0-66.0); PLATELET COUNT, AUTOMATED 245 10^3/uL (150-450); RED BLOOD COUNT 4.43 10^6/uL (4.00-5.40); WHITE BLOOD COUNT 7.9 10^3/uL (4.0-10.0)
[2022-10-14 18:22] LABS: ALBUMIN 3.8 G/DL (3.2-5.2); BILIRUBIN,DIRECT 0.2 MG/DL (<0.4); BILIRUBIN,TOTAL 0.7 MG/DL (0.3-1.2); TOTAL 25(OH) VITAMIN D 48.4 NG/ML (20.0-100.0); TOTAL PROTEIN 6.8 G/DL (5.7-8.2)
== END ==
LOC: M PLALAB 12:39
PROVIDERS: ATTEND Specialist
DX: D51.1 Vitamin B12 deficiency anemia due to selective vitamin B12 malabsorption with proteinuria (principal)

== ENCOUNTER → 2022-11-10 | Outpatient (CLI) | payer MEDICARE, MEDICAID ==
[~2022-11-10] MED LIST changes: +CYCL1SOL14 OU; -CYCL1SOL17 OU
[2022-11-10 18:18] LABS: BASO % 0.6 % (0.0-1.0); EOS # 0.1 10^3/uL (0.0-0.5); EOS % 1.7 % (0.0-3.0); HEMATOCRIT 39.9 % (36.0-47.0); HEMOGLOBIN 13.2 g/dl (12.0-15.5); LYMPH # 1.6 10^3/uL (1.5-5.0); LYMPH % 24.2 % (24.0-44.0); MEAN CORPUSCULAR HEMOGLOBIN 30.3 pg (27.0-33.0); MEAN CORPUSCULAR HGB CONC 33.1 g/dl (32.0-36.5); MEAN CORPUSCULAR VOLUME 91.7 fl (80.0-96.0); MONO # 0.6 10^3/uL (0.0-0.8); MONO % 9.2 % (2.0-8.0); NEUTROPHILS # 4.1 10^3/uL (1.5-8.5); NEUTROPHILS % 64.1 % (36.0-66.0); PLATELET COUNT, AUTOMATED 243 10^3/uL (150-450); RED BLOOD COUNT 4.35 10^6/uL (4.00-5.40); WHITE BLOOD COUNT 6.4 10^3/uL (4.0-10.0)
[2022-11-10 18:24] LABS: ERYTHROCYTE SEDIMENTATION RATE 46 mm/hr (0-30)
[2022-11-10 18:42] LABS: RHEUMATOID FACTOR QUANT 5.4 IU/ML (<14)
== END ==
LOC: M LAB 16:29
PROVIDERS: ATTEND Ophthalmology
DX: H30.93 Unspecified chorioretinal inflammation, bilateral (principal)

== ENCOUNTER → 2023-01-04 | Outpatient (CLI) | payer MEDICARE, MEDICAID ==
[~2023-01-04] MED LIST changes: -COZA50TA PO; +LOSA-528 PO
[2023-01-04 10:01] LABS: BASO # 0.1 10^3/uL (0.0-0.2); BASO % 0.7 % (0.0-1.0); EOS # 0.1 10^3/uL (0.0-0.5); EOS % 1.9 % (0.0-3.0); HEMATOCRIT 40.5 % (36.0-47.0); LYMPH # 1.6 10^3/uL (1.5-5.0); LYMPH % 21.5 % (24.0-44.0); MEAN CORPUSCULAR HEMOGLOBIN 29.3 pg (27.0-33.0); MEAN CORPUSCULAR HGB CONC 32.1 g/dl (32.0-36.5); MEAN CORPUSCULAR VOLUME 91.2 fl (80.0-96.0); MONO # 0.7 10^3/uL (0.0-0.8); NEUTROPHILS # 4.9 10^3/uL (1.5-8.5); NEUTROPHILS % 66.6 % (36.0-66.0); PLATELET COUNT, AUTOMATED 221 10^3/uL (150-450); RED BLOOD COUNT 4.44 10^6/uL (4.00-5.40); WHITE BLOOD COUNT 7.3 10^3/uL (4.0-10.0)
[2023-01-04 10:07] LABS: ERYTHROCYTE SEDIMENTATION RATE 22 mm/hr (0-30)
[2023-01-04 10:27] LABS: CPK CREATINE PHOSPHOKINASE 65 U/L (34-145)
[2023-01-04 10:28] LABS: ALBUMIN 3.6 G/DL (3.2-5.2); ALKALINE PHOSPHATASE 88 U/L (46-116); ALT/SGPT 26 U/L (7.0-40); AST/SGOT 20 U/L (<34); BILIRUBIN,DIRECT 0.2 MG/DL (<0.4); BILIRUBIN,TOTAL 0.8 MG/DL (0.3-1.2); BLOOD UREA NITROGEN 22 MG/DL (9-23); CALCIUM LEVEL 8.9 MG/DL (8.5-10.1); CARBON DIOXIDE LEVEL 30 MMOL/L (20-31); CHLORIDE LEVEL 108 MMOL/L (98-107); CHOLESTEROL LEVEL 210 MG/DL (<200); CHOLESTEROL RISK RATIO 3.01 (<5); GLOMERULAR FILTRATION RATE > 60.0 (>51); GLUCOSE, FASTING 79 MG/DL (60-100); HDL CHOLESTEROL 69.7 MG/DL (>40); LDL CHOLESTEROL 127.9 MG/DL (<100); NON-HDL-C 140.3 MG/DL; SODIUM LEVEL 142 MMOL/L (136-145); TOTAL PROTEIN 6.5 G/DL (5.7-8.2); TRIGLYCERIDES LEVEL 62 MG/DL (<150)
[2023-01-04 10:33] LABS: FREE T4 0.94 NG/DL (0.89-1.76)
[2023-01-04 10:34] LABS: THYROID STIMULATING HORMONE 2.743 uIU/ML (0.55-4.78)
== END ==
LOC: M LAB 09:16
PROVIDERS: ATTEND Internal Medicine
DX: E03.9 Hypothyroidism, unspecified (principal)

== ENCOUNTER → 2023-01-04 | Outpatient (CLI) | payer MEDICARE, MEDICAID ==
[2023-01-04 09:52] LABS: BASO % 0.5 % (0.0-1.0); EOS # 0.2 10^3/uL (0.0-0.5); HEMATOCRIT 39.3 % (36.0-47.0); HEMOGLOBIN 12.9 g/dl (12.0-15.5); LYMPH # 1.6 10^3/uL (1.5-5.0); LYMPH % 21.2 % (24.0-44.0); MEAN CORPUSCULAR HEMOGLOBIN 29.7 pg (27.0-33.0); MEAN CORPUSCULAR HGB CONC 32.8 g/dl (32.0-36.5); MEAN CORPUSCULAR VOLUME 90.3 fl (80.0-96.0); MONO # 0.7 10^3/uL (0.0-0.8); MONO % 9.9 % (2.0-8.0); NEUTROPHILS # 4.9 10^3/uL (1.5-8.5); PLATELET COUNT, AUTOMATED 208 10^3/uL (150-450); RED BLOOD COUNT 4.35 10^6/uL (4.00-5.40); WHITE BLOOD COUNT 7.4 10^3/uL (4.0-10.0)
[2023-01-04 10:29] LABS: IMMUNOGLOBULIN G 859 MG/DL (650-1600); IMMUNOGLOBULIN M 62.4 MG/DL (50-300)
[2023-01-04 10:33] LABS: ALBUMIN 3.7 G/DL (3.2-5.2); ALKALINE PHOSPHATASE 89 U/L (46-116); ALT/SGPT 27 U/L (7.0-40); AST/SGOT 22 U/L (<34); BILIRUBIN,TOTAL 0.8 MG/DL (0.3-1.2); BLOOD UREA NITROGEN 21 MG/DL (9-23); CALCIUM LEVEL 8.8 MG/DL (8.5-10.1); CARBON DIOXIDE LEVEL 30 MMOL/L (20-31); CHLORIDE LEVEL 108 MMOL/L (98-107); CREATININE FOR GFR 0.78 MG/DL (0.55-1.30); GLOMERULAR FILTRATION RATE > 60.0 (>51); GLUCOSE, FASTING 85 MG/DL (60-100); POTASSIUM SERUM 4.1 MMOL/L (3.5-5.1); SODIUM LEVEL 143 MMOL/L (136-145); TOTAL PROTEIN 6.6 G/DL (5.7-8.2)
== END ==
LOC: M LAB 09:23
DX: G35 Multiple sclerosis (principal)

== ENCOUNTER → 2023-01-19 | Outpatient (CLI) | payer MEDICARE, MEDICAID ==
[~2023-01-19] MED LIST changes: +PROHANCE 279.3MG/ML 15ML VIAL As Ordered ONE; +PROHANCE 279.3MG/ML 5ML VIAL As Ordered ONE
== END ==
LOC: M RAD 12:19
DX: G35 Multiple sclerosis (principal)
CPT/HCPCS: 70553; A9576

== ENCOUNTER → 2023-02-21 | Outpatient (REF) | payer MEDICARE, MEDICAID, OTHER ==
[~2023-02-21] MED LIST changes: -PROHANCE 279.3MG/ML 15ML VIAL As Ordered ONE; -PROHANCE 279.3MG/ML 5ML VIAL As Ordered ONE
== END ==
LOC: M SFHCWAGY 13:20
PROVIDERS: ATTEND Nurse Practitioner Family
DX: Z12.4 Encounter for screening for malignant neoplasm of cervix (principal)
CPT/HCPCS: 87624; G0123

== ENCOUNTER 2023-08-28 08:41 | Day surgery (SDC) | payer MEDICAID, MEDICARE, OTHER ==
[~2023-08-28] VITALS: Ht 160 cm; Wt 94.3 kg
[~2023-08-28 08:41] MED LIST changes: +D 1010004 PO; +LYRI150C PO; +NS 1,000 ML IV ONE; +OFAT20PE SQ; -PREG75CA2 PO; +PREG75CA3 PO; +VIBE75TA PO
[2023-08-28] MEDS ORDERED: propofoL 200 MG/20 ML VIAL As Ordered ONE ×2 (09:38→10:08)
[2023-08-28 10:00] VITALS: TEMP 97.2
[2023-08-28 10:20] VITALS: BP 140/78; O2SAT 97
== END 2023-08-28 10:24 | disposition home or self-care (01) ==
LOC: M OPP 08:41
PROVIDERS: ATTEND Internal Medicine Gastroenterology
DX: Z12.11 Encounter for screening for malignant neoplasm of colon (principal); K64.0 First degree hemorrhoids; G47.30 Sleep apnea, unspecified; Z86.73 Personal history of transient ischemic attack (TIA), and cerebral infarction without residual deficits; Z79.1 Long term (current) use of non-steroidal anti-inflammatories (NSAID); Z79.620 Long term (current) use of immunosuppressive biologic; Z79.890 Hormone replacement therapy; Z79.891 Long term (current) use of opiate analgesic; Z79.899 Other long term (current) drug therapy; Z88.2 Allergy status to sulfonamides

== ENCOUNTER → 2023-12-11 | Outpatient (CLI) | payer MEDICARE ==
[~2023-12-11] MED LIST changes: -KLON0.5T PO; +KLON0.5T8 PO; -MIRA1POW3 PO; +MIRA33506 PO; -NS 1,000 ML IV ONE
== END ==
LOC: M PLAIMG 06:38
PROVIDERS: ATTEND Student in an Organized Health Care Education/Training Program
DX: G35 Multiple sclerosis (principal)

== ENCOUNTER → 2024-03-14 | Outpatient (CLI) | payer MEDICARE ==
[~2024-03-14] MED LIST changes: +GABA-1490 PO; -GABA600T4 PO
== END ==
LOC: M WHC 13:44
PROVIDERS: ATTEND Nurse Practitioner Family
DX: Z12.31 Encounter for screening mammogram for malignant neoplasm of breast (principal)

== ENCOUNTER → 2024-09-24 | Outpatient (CLI) | payer MEDICARE ==
[~2024-09-24] MED LIST changes: +GABA-1172 PO; -GABA-282 PO
[2024-09-24 13:15] LABS: BASO % 0.6 % (0.0-1.0); EOS # 0.1 10^3/uL (0.0-0.5); EOS % 1.9 % (0.0-3.0); HEMATOCRIT 41.3 % (36.0-47.0); HEMOGLOBIN 13.4 g/dl (12.0-15.5); LYMPH # 1.6 10^3/uL (1.5-5.0); LYMPH % 26.1 % (24.0-44.0); MEAN CORPUSCULAR HEMOGLOBIN 29.3 pg (27.0-33.0); MEAN CORPUSCULAR HGB CONC 32.4 g/dl (32.0-36.5); MEAN CORPUSCULAR VOLUME 90.2 fl (80.0-96.0); MONO # 0.7 10^3/uL (0.0-0.8); MONO % 11.5 % (2.0-8.0); NEUTROPHILS # 3.7 10^3/uL (1.5-8.5); NEUTROPHILS % 59.6 % (36.0-66.0); PLATELET COUNT, AUTOMATED 233 10^3/uL (150-450); RED BLOOD COUNT 4.58 10^6/uL (4.00-5.40); WHITE BLOOD COUNT 6.3 10^3/uL (4.0-10.0)
[2024-09-24 13:44] LABS: ALBUMIN 3.8 G/DL (3.2-5.2); ALKALINE PHOSPHATASE 84 U/L (35-104); ALT/SGPT 25 U/L (7.0-40); AST/SGOT 18 U/L (<34); BILIRUBIN,TOTAL 0.8 MG/DL (0.3-1.2); BLOOD UREA NITROGEN 27 MG/DL (9-23); CALCIUM LEVEL 9.5 MG/DL (8.3-10.6); CARBON DIOXIDE LEVEL 31 MMOL/L (20-31); CHLORIDE LEVEL 106 MMOL/L (98-107); CREATININE FOR GFR 0.93 MG/DL (0.55-1.30); GLOMERULAR FILTRATION RATE > 60.0 (>45); GLUCOSE, FASTING 94 MG/DL (74-106); POTASSIUM SERUM 4.1 MMOL/L (3.5-5.1); SODIUM LEVEL 144 MMOL/L (136-145); TOTAL PROTEIN 7.1 G/DL (5.7-8.2)
[2024-09-24 13:45] LABS: IMMUNOGLOBULIN A 273.7 MG/DL (40-350); IMMUNOGLOBULIN G 871 MG/DL (650-1600); IMMUNOGLOBULIN M 46.7 MG/DL (50-300)
[2024-09-26 18:42] LABS: % CD4 61 % (30-61); %CD8 29 % (12-42); ABSOLUTE CD4 CELLS 909 cells/uL (490-1740); ABSOLUTE CD8 CELLS 431 cells/uL (180-1170); ABSOLUTE LYMPHOCYTES 1483 cells/uL (850-3900); CD4 CD8 RATIO 2.11 (0.86-5.00)
== END ==
LOC: M LAB 11:21
PROVIDERS: ATTEND Student in an Organized Health Care Education/Training Program
DX: G35 Multiple sclerosis (principal)

== ENCOUNTER → 2024-12-02 | Outpatient (CLI) | payer MEDICARE ==
[2024-12-02 14:08] LABS: BASO % 0.6 % (0.0-1.0); EOS # 0.1 10^3/uL (0.0-0.5); EOS % 1.9 % (0.0-3.0); HEMATOCRIT 39.1 % (36.0-47.0); HEMOGLOBIN 12.7 g/dl (12.0-15.5); LYMPH # 2.1 10^3/uL (1.5-5.0); LYMPH % 29.9 % (24.0-44.0); MEAN CORPUSCULAR HEMOGLOBIN 29.7 pg (27.0-33.0); MEAN CORPUSCULAR HGB CONC 32.5 g/dl (32.0-36.5); MEAN CORPUSCULAR VOLUME 91.6 fl (80.0-96.0); MONO # 0.7 10^3/uL (0.0-0.8); MONO % 10.1 % (2.0-8.0); NEUTROPHILS % 57.4 % (36.0-66.0); PLATELET COUNT, AUTOMATED 209 10^3/uL (150-450); RED BLOOD COUNT 4.27 10^6/uL (4.00-5.40); WHITE BLOOD COUNT 6.9 10^3/uL (4.0-10.0)
[2024-12-02 15:06] LABS: HEMOGLOBIN A1c 5.2 % (4.0-6.0)
[2024-12-02 15:09] LABS: THYROID STIMULATING HORMONE 0.782 uIU/ML (0.55-4.78)
[2024-12-02 15:10] LABS: ALBUMIN 3.8 G/DL (3.2-5.2); BILIRUBIN,TOTAL 0.7 MG/DL (0.3-1.2); CALCIUM LEVEL 9.7 MG/DL (8.3-10.6); CHOLESTEROL RISK RATIO 3.51 (<5); CREATININE FOR GFR 0.82 MG/DL (0.55-1.30); GLOMERULAR FILTRATION RATE 81.3 (>45); HDL CHOLESTEROL 63.8 MG/DL (>40); LDL CHOLESTEROL 145.2 MG/DL (<100); NON-HDL-C 160.2 MG/DL; POTASSIUM SERUM 3.9 MMOL/L (3.5-5.1); TOTAL PROTEIN 6.8 G/DL (5.7-8.2)
[2024-12-02 15:11] LABS: FREE T4 1.52 NG/DL (0.89-1.76)
== END ==
LOC: M LAB 13:27
PROVIDERS: ATTEND Physician Assistant
DX: I10 Essential (primary) hypertension (principal)

== ENCOUNTER → 2024-12-03 | Outpatient (CLI) | payer MEDICARE ==
[~2024-12-03] MED LIST changes: +PROHANCE 279.3MG/ML 15ML VIAL As Ordered ONE; +PROHANCE 279.3MG/ML 5ML VIAL As Ordered ONE
== END ==
LOC: M RAD 15:34
PROVIDERS: ATTEND Student in an Organized Health Care Education/Training Program
DX: G35 Multiple sclerosis (principal)
CPT/HCPCS: 70553; A9576

== ENCOUNTER → 2025-03-19 | Outpatient (CLI) | payer MEDICARE ==
[~2025-03-19] MED LIST changes: +AMMO12CR4 EX; -AMMO12CR7 EX; +HYDR12.510 PO; -HYDR12CA PO; -PROHANCE 279.3MG/ML 15ML VIAL As Ordered ONE; -PROHANCE 279.3MG/ML 5ML VIAL As Ordered ONE
== END ==
LOC: M WHC 09:10
PROVIDERS: ATTEND Nurse Practitioner Family
DX: Z12.31 Encounter for screening mammogram for malignant neoplasm of breast (principal); M81.0 Age-related osteoporosis without current pathological fracture

== ENCOUNTER → 2025-06-17 | Outpatient (CLI) | payer MEDICARE ==
[2025-06-17 13:44] LABS: BASO # 0.1 10^3/uL (0.0-0.2); BASO % 0.9 % (0.0-1.0); EOS # 0.2 10^3/uL (0.0-0.5); EOS % 2.6 % (0.0-3.0); LYMPH # 1.9 10^3/uL (1.5-5.0); LYMPH % 29.2 % (24.0-44.0); MONO # 0.8 10^3/uL (0.0-0.8); MONO % 11.7 % (2.0-8.0); NEUTROPHILS # 3.6 10^3/uL (1.5-8.5); NEUTROPHILS % 55.3 % (36.0-66.0); PLATELET COUNT, AUTOMATED 230 10^3/uL (150-450)
[2025-06-17 14:12] LABS: ALT/SGPT 39.0 U/L (7.0-40); AST/SGOT 34.0 U/L (<34); CALCIUM LEVEL 9.2 MG/DL (8.3-10.6); CARBON DIOXIDE LEVEL 31.0 MMOL/L (20-31); CHLORIDE LEVEL 102.0 MMOL/L (98-107); CREATININE FOR GFR 0.87 MG/DL (0.55-1.30); GLOMERULAR FILTRATION RATE 75.3 (>45); POTASSIUM SERUM 4.1 MMOL/L (3.5-5.1); SODIUM LEVEL 142.0 MMOL/L (136-145)
== END ==
LOC: M PLALAB 10:09
PROVIDERS: ATTEND Student in an Organized Health Care Education/Training Program
DX: G35.D Multiple sclerosis, unspecified (principal)

== ENCOUNTER → 2025-06-17 | Outpatient (CLI) | payer MEDICARE ==
[2025-06-17 14:12] LABS: CHOLESTEROL LEVEL 222.0 MG/DL (<200); CHOLESTEROL RISK RATIO 3.19 (<5); LDL CHOLESTEROL 139.7 MG/DL (<100); NON-HDL-C 152.5 MG/DL; TRIGLYCERIDES LEVEL 64.0 MG/DL (<150)
[2025-06-17 14:13] LABS: FREE T4 1.34 NG/DL (0.89-1.76)
== END ==
LOC: M PLALAB 10:04
PROVIDERS: ATTEND Physician Assistant
DX: E06.3 Autoimmune thyroiditis (principal); M79.641 Pain in right hand; G35.D Multiple sclerosis, unspecified

== ENCOUNTER → 2025-06-20 | Outpatient (CLI) | payer MEDICARE | LOC: M PLAIMG 13:02 | PROVIDERS: ATTEND Physician Assistant | DX: M79.89 Other specified soft tissue disorders (principal) ==